=== PATIENT | male | born 1935 | race Caucasian/White ===

== ENCOUNTER 2016-10-07 09:03 | Day surgery (SDC) | payer MEDICARE ==
[2016-10-02 16:01] VITALS: BMI 27.6
[~2016-10-07 09:03] MED LIST: ALBUTEROL NEB (CONC) 2.5 MG/0.5 ML INHALATION ONE; LACTATED RINGERS 1,000 ML IV ONE; LACTATED RINGERS 1,000 ML IV SCH; LIDOCAINE 1% 20 ML VIAL (10MG/ML) FOR IV START INTRADERMA PRN; LIDOCAINE 2% (PF) 20 MG/ML 10ML INHALATION ONE; ONDANSETRON 4 MG/2 ML VIAL IVP ONE
[2016-10-07 10:43] LABS: Glucose,Whole Blood 119 mg/dL (75-99)
[2016-10-07] MEDS ORDERED: GLYCOPYRROLATE 0.2 MG/ML 2 ML VIAL ONE (11:04)
[2016-10-07] MEDS ORDERED: PROPOFOL 10 MG/ML 20 ML VIAL IV ONE (11:04)
[2016-10-07] MEDS ORDERED: KETAMINE 10 MG/ML 20 ML VIAL ONE (11:04)
[2016-10-07] MEDS ORDERED: MIDAZOLAM 2 MG/2 ML VIAL ONE (11:04)
--- NOTE | 2016-10-07 12:16 | P.PCN ---
Date of Procedure: 10/07/16 Preoperative Diagnosis: left lung mass Postoperative Diagnosis: 1. left vocal cord weakness/paralysis 2. 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 Endobronchial tumor completely effacing the secondary flip between the left upper and left lower lobe 4. Significant narrowing of the left upper lobe bronchus with airway diameter has been reduced by 90% 5. Near complete loss of the left lower lobe bronchus which is essentially infiltrated by tumor. Anesthesia: MAC Surgeon: Yehuda Whitehead Estimated Blood Loss (ml): 0 Pathology: other Condition: stable Disposition: same day Operative Findings: This procedure was done under conscious sedation with anesthetic agents being administered by anesthesia at the bedside. After achieving adequate sedation, a flexible bronchoscope was inserted through the right nostril was advanced to the upper airway. The upper airway structures were inspected. Posterior oropharynx larynx epiglottis and vocal cords were evaluated. Left vocal cord was less active compared to the right and I did suspect an underlying partial paralysis of the left vocal cord. A total of 2 mg of 1% lidocaine was applied to the vocal cords and following the bronchoscope was advanced into the upper trachea and examination of the tracheal bronchial tree with him. Trachea was patent within normal limits. Main flip was sharp and following that the bilateral mainstem bronchi were inspected. Examination of right mainstem bronchus was within normal limits. The left mainstem bronchus gradually tapered off and got narrowed as the airway was infiltrated by endobronchial tumor that was going circumferentially around the bronchus, somewhat spreading the posterior wall. As the bronchoscope was advanced further, there was further endobronchial tumor that was very irregular and vascular and friable occupying the distal left mainstem bronchus causing complete effacement of the secondary flip from the left upper lobe and the left lower lobe. The left upper lobe bronchus was narrowed significantly and the diameter of the airway was induced by 90%. I was unable to introduce the scope in the left upper lobe bronchus inspected various segments. There was also complete loss of the left lower lobe bronchus which was essentially infiltrated with tumor and this area was essentially heavily involved with endobronchial growth that was occupying the airway. At this point the bronchoscope was moved to the right and examination of the right lung included the right upper lobe bronchus right middle lobe bronchus and right lower lobe bronchus was done and these airways were essentially patent. Following that I remove the bronchoscope to the distal trachea and using an 18-gauge cytology to transbronchial needle aspirate of the left paratracheal lymph node was done. Adequacy of the sample was confirmed by pathology at the bedside. There was abnormal cells that needs to be further characterized. Following that, the bronchoscope was moved to the left mainstem bronchus and the bronchial biopsy of the endobronchial lesion was done under direct visualization. This was followed by endobronchial brushings at the end of the procedure I lavaged the secondary flip between the left upper and left lower lobe bronchi. Total of 80 MO's of fluid was infused and 25-30 MO's of aspirate was obtained. No active bleeding was identified although tumor surface was quite friable. The bronchoscope was then removed and on the way out therapeutic airway suctioning was done. The patient maintained a pulse ox above 90% throughout the procedure and he was transferred recovery in stable condition.
[2016-10-07 12:19] VITALS: TEMP 97.4
[2016-10-07 12:29] VITALS: RESP 16
--- NOTE | 2016-10-07 12:38 | XR ---
EXAMINATION TYPE: XR chest 1V portable DATE OF EXAM: 10/07/2016 12:31 PM COMPARISON: 09/28/2014 HISTORY: Postop left lung biopsy TECHNIQUE: Single frontal view of the chest is obtained. FINDINGS: There is near complete consolidation left lung with no sizable pneumothorax. Volume loss i s suspected. Right lung is clear. Heart size stable. IMPRESSION: 1. Aggressive consolidation and reduced aeration of the left lung. 2. No evidence of pneumothorax.
[2016-10-07 13:01] VITALS: PULSE 101
[2016-10-07 13:02] VITALS: BP 101/61
== END 2016-10-07 13:27 | disposition home or self-care (01) ==
LOC: ORWHC2ENDO 09:03
PROVIDERS: ATTEND Internal Medicine Critical Care Medicine
DX: C34.02 Malignant neoplasm of left main bronchus (principal); C77.1 Secondary and unspecified malignant neoplasm of intrathoracic lymph nodes; J38.01 Paralysis of vocal cords and larynx, unilateral; I25.10 Atherosclerotic heart disease of native coronary artery without angina pectoris; I10 Essential (primary) hypertension; E78.5 Hyperlipidemia, unspecified; E78.00 Pure hypercholesterolemia, unspecified; J44.9 Chronic obstructive pulmonary disease, unspecified; Z95.5 Presence of coronary angioplasty implant and graft; E11.9 Type 2 diabetes mellitus without complications; Z79.84 Long term (current) use of oral hypoglycemic drugs; Z79.02 Long term (current) use of antithrombotics/antiplatelets; Z79.82 Long term (current) use of aspirin; Z79.899 Other long term (current) drug therapy; Z87.891 Personal history of nicotine dependence
CPT/HCPCS: 94640; 88104; 88108; 88305; 88173; 88342; 88341; 71010; 31629; 31625; 31623; 31624; J2250; J2001; J2704

== ENCOUNTER 2016-10-20 20:04 | Inpatient (IN) | payer MEDICARE ==
--- NOTE | 2016-10-20 20:47 | ED ---
General Adult HPI - General Source: patient, RN notes reviewed Mode of arrival: wheelchair Limitations: no limitations <Benjie Zuniga - Last Filed: 10/20/16 20:58> <Benjie Milton - Last Filed: 10/20/16 22:44> - General Chief complaint: Shortness of Breath Stated complaint: difficulty breathing Time Seen by Provider: 10/20/16 20:25 - History of Present Illness Initial comments: This is an 81-year-old male who presents emergency department with past medical history significant for lung cancer he has not yet seen an oncologist. Patient comes in today because he has been coughing more and more lately and coughing up more more sputum. Patient states because of the persistent cough he's become much more short of breath. Patient denies any significant pain. Patient denies any abdominal pain. Patient denies any headache patient denies numbness weakness. Patient denies any fever or chills. Patient denies any recent injury or trauma. According to the son most of his left lung is blocked because of the tumor because it is very large and aggressive according to the physicians he has seen. Patient states the major reason that he came in today was because of the shortness of breath. (Benjie Zuniga) - Related Data Home Medications Medication Instructions Recorded Confirmed Aspirin 81 mg PO DAILY 02/20/15 10/20/16 Atorvastatin [Lipitor] 40 mg PO HS 02/20/15 10/20/16 Clopidogrel [Plavix] 75 mg PO DAILY 02/20/15 10/20/16 Lisinopril [Zestril] 10 mg PO BID 02/20/15 10/20/16 Metoprolol Tartrate 25 mg PO BID 02/20/15 10/20/16 Nitroglycerin Sl Tabs [Nitrostat] 0.4 mg SUBLINGUAL Q5M PRN 02/20/15 10/20/16 metFORMIN HCL [Glucophage] 500 mg PO DAILY 02/20/15 10/20/16 Omeprazole [PriLOSEC] 20 mg PO DAILY 10/20/16 10/20/16 Allergies Allergy/AdvReac Type Severity Reaction Status Date / Time No Known Allergies Allergy Verified 10/20/16 21:09 Review of Systems ROS Other: All systems not noted in ROS Statement are negative. <Benjie Zuniga - Last Filed: 10/20/16 20:58> ROS Other: All systems not noted in ROS Statement are negative. <Benjie Milton - Last Filed: 10/20/16 22:44> ROS Statement: Those systems with pertinent positive or pertinent negative responses have been documented in the HPI. Past Medical History Past Medical History: Coronary Artery Disease (CAD), Cancer, Chest Pain / Angina , Diabetes Mellitus, Hyperlipidemia, Myocardial Infarction ([place]), Pneumonia Additional Past Medical History / Comment(s): pt stated he had a heart attack years ago and doesn't know when. Hx. of multiple skin cancers. Was treated for pneumonia and was not getting better. lung cancer Last Myocardial Infarction Date:: unknown History of Any Multi-Drug Resistant Organisms: None Reported Past Surgical History: Appendectomy, Heart Catheterization With Stent, Tonsillectomy Additional Past Surgical History / Comment(s): removal of skin cancer from left arm, broken leg at age of 7. Skin cancer removed 3 weeks ago from scalp. Past Anesthesia/Blood Transfusion Reactions: No Reported Reaction Date of Last Stent Placement:: 2010 Past Psychological History: No Psychological Hx Reported Smoking Status: Former smoker Past Alcohol Use History: Rare Additional Past Alcohol Use History / Comment(s): Quit 6 years ago. Smoked approx. 1 PPD for a few years. Past Drug Use History: None Reported - Past Family History Brother(s) Additional Family Medical History / Comment(s): Enlarged heart. <Benjie Zuniga - Last Filed: 10/20/16 20:58> General Exam Limitations: no limitations <Benjie Zuniga - Last Filed: 10/20/16 20:58> General appearance: alert, in no apparent distress Head exam: Present: atraumatic, normocephalic, normal inspection Eye exam: Present: normal appearance, PERRL, EOMI. Absent: scleral icterus, conjunctival injection, periorbital swelling ENT exam: Present: normal exam, mucous membranes moist Neck exam: Present: normal inspection. Absent: tenderness, meningismus, lymphadenopathy Respiratory exam: Present: normal lung sounds bilaterally, other (Left lung diminished). Absent: respiratory distress, wheezes, rales, rhonchi, stridor Cardiovascular Exam: Present: normal rhythm, tachycardia, normal heart sounds. Absent: systolic murmur, diastolic murmur, rubs, gallop, clicks GI/Abdominal exam: Present: soft, normal bowel sounds. Absent: distended, tenderness, guarding, rebound, rigid Extremities exam: Present: normal inspection, full ROM, normal capillary refill. Absent: tenderness, pedal edema, joint swelling, calf tenderness Back exam: Present: normal inspection Neurological exam: Present: alert, oriented X3, CN II-XII intact Psychiatric exam: Present: normal affect, normal mood Skin exam: Present: warm, dry, intact, normal color. Absent: rash <Benjie Milton - Last Filed: 10/20/16 22:44> - General Exam Comments Initial Comments: GENERAL: Patient is well-developed and well-nourished. Patient is nontoxic and well- hydrated and is in mild distress. ENT: Neck is soft and supple. No significant lymphadenopathy is noted. Oropharynx is clear. Moist mucous membranes. Neck has full range of motion without eliciting any pain. EYES: The sclera were anicteric and conjunctiva were pink and moist. Extraocular movements were intact and pupils were equal round and reactive to light. Eyelids were unremarkable. PULMONARY: Unlabored respirations. Diminished breath sounds on the left. CARDIOVASCULAR: There is a regular rate and rhythm without any murmurs gallops or rubs. ABDOMEN: Soft and nontender with normal bowel sounds. No palpable organomegaly was noted. There is no palpable pulsatile mass. SKIN: Skin is clear with no lesions or rashes and otherwise unremarkable. NEUROLOGIC: Patient is alert and oriented x3. Cranial nerves II through XII are grossly intact. Motor and sensory are also intact. Normal speech, volume and content. Symmetrical smile. MUSCULOSKELETAL: Normal extremities with adequate strength and full range of motion. No lower extremity swelling or edema. No calf tenderness. LYMPHATICS: No significant lymphadenopathy is noted PSYCHIATRIC: Normal psychiatric evaluation. Normal interpersonal interactions appears functionally intact in deals appropriately with others. (Benjie Zuniga) Medical Decision Making - Lab Data Result diagrams: 10/20/16 20:33 <Benjie Zuniga - Last Filed: 10/20/16 20:58> - Lab Data Result diagrams: 10/20/16 20:33 10/20/16 20:33 - Radiology Data Radiology results: report reviewed (Chest x-ray two-view is positive for left lung atelectasis, compressive atelectasis likely secondary to tumor), image reviewed <Benjie Milton - Last Filed: 10/20/16 22:44> - Medical Decision Making EKG shows normal sinus rhythm at 90 bpm SD interval is 136 dresses 120 QT interval 360 QTC is 459 patient's EKG shows no ST segment elevation or depression however there is Q waves in leads V1 through V3 Dr. Milton will be taking over the care of this patient at 9 PM (Benjie Zuniga) 81 male ER for evaluation of severe shortness of breath, recent diagnosis of lung CA, patient has worsening compressive atelectasis of left lung, as well as 100% atelectasis of left lung. Patient is moderately hypoxic, patient will be admitted for both oncologic and pulmonary evaluation (Benjie Milton) - Lab Data Lab Results 10/20/16 10/20/16 10/20/16 Range/Units 20:33 20:33 20:33 WBC 9.0 (3.8-10.6) k/uL RBC 4.85 (4.30-5.90) m/uL Hgb 15.2 (13.0-17.5) gm/dL Hct 47.5 (39.0-53.0) % MCV 97.9 (80.0-100.0) fL MCH 31.3 (25.0-35.0) pg MCHC 32.0 (31.0-37.0) g/dL RDW 13.8 (11.5-15.5) % Plt Count 324 (150-450) k/uL Neutrophils % 83 % Lymphocytes % 9 % Monocytes % 6 % Eosinophils % 0 % Basophils % 1 % Neutrophils # 7.4 (1.3-7.7) k/uL Lymphocytes # 0.9 L (1.0-4.8) k/uL Monocytes # 0.5 (0-1.0) k/uL Eosinophils # 0.0 (0-0.7) k/uL Basophils # 0.1 (0-0.2) k/uL PT (9.0-12.0) sec INR (<1.1) APTT (22.0-30.0) sec Sodium 138 (137-145) mmol/L Potassium 4.8 (3.5-5.1) mmol/L Chloride 102 (98-107) mmol/L Carbon Dioxide 27 (22-30) mmol/L Anion Gap 9 mmol/L BUN 17 (9-20) mg/dL Creatinine 0.98 (0.66-1.25) mg/dL Est GFR (MDRD) Af Amer >60 (>60 ml/min/1.73 sqM) Est GFR (MDRD) Non-Af >60 (>60 ml/min/1.73 sqM) Glucose 132 H (74-99) mg/dL Calcium 9.8 (8.4-10.2) mg/dL Total Bilirubin 1.1 (0.2-1.3) mg/dL AST 177 H (17-59) U/L ALT 150 H (21-72) U/L Alkaline Phosphatase 269 H (38-126) U/L Total Creatine Kinase 113 (55-170) U/L CK-MB (CK-2) 3.6 H* (0.0-2.4) ng/mL CK-MB (CK-2) Rel Index 3.2 Troponin I <0.012 (0.000-0.034) ng/mL NT-Pro-B Natriuret Pep pg/mL Total Protein 6.3 (6.3-8.2) g/dL Albumin 3.2 L (3.5-5.0) g/dL 10/20/16 10/20/16 Range/Units 20:33 20:33 WBC (3.8-10.6) k/uL RBC (4.30-5.90) m/uL Hgb (13.0-17.5) gm/dL Hct (39.0-53.0) % MCV (80.0-100.0) fL MCH (25.0-35.0) pg MCHC (31.0-37.0) g/dL RDW (11.5-15.5) % Plt Count (150-450) k/uL Neutrophils % % Lymphocytes % % Monocytes % % Eosinophils % % Basophils % % Neutrophils # (1.3-7.7) k/uL Lymphocytes # (1.0-4.8) k/uL Monocytes # (0-1.0) k/uL Eosinophils # (0-0.7) k/uL Basophils # (0-0.2) k/uL PT 12.3 H (9.0-12.0) sec INR 1.2 (<1.1) APTT 21.0 L (22.0-30.0) sec Sodium (137-145) mmol/L Potassium (3.5-5.1) mmol/L Chloride (98-107) mmol/L Carbon Dioxide (22-30) mmol/L Anion Gap mmol/L BUN (9-20) mg/dL Creatinine (0.66-1.25) mg/dL Est GFR (MDRD) Af Amer (>60 ml/min/1.73 sqM) Est GFR (MDRD) Non-Af (>60 ml/min/1.73 sqM) Glucose (74-99) mg/dL Calcium (8.4-10.2) mg/dL Total Bilirubin (0.2-1.3) mg/dL AST (17-59) U/L ALT (21-72) U/L Alkaline Phosphatase (38-126) U/L Total Creatine Kinase (55-170) U/L CK-MB (CK-2) (0.0-2.4) ng/mL CK-MB (CK-2) Rel Index Troponin I (0.000-0.034) ng/mL NT-Pro-B Natriuret Pep 223 pg/mL Total Protein (6.3-8.2) g/dL Albumin (3.5-5.0) g/dL Disposition <Benjie Zuniga - Last Filed: 10/20/16 20:58> <Benjie Milton - Last Filed: 10/20/16 22:44> Clinical Impression: Chest pain, Mass of lower lobe of left lung, Mass of left lung, Atelectasis of left lung Disposition: ADMITTED IP TO THIS HOSP Condition: Serious
[2016-10-20 20:55] LABS: Basophils # (A) 0.1 k/uL (0-0.2); Basophils % (A) 1 %; CH 31.5; CHCM 32.4; Eosinophils % (A) 0 %; HCT 47.5 % (39.0-53.0); HDW 2.52; HGB 15.2 gm/dL (13.0-17.5); Luc # (Auto) 0.14; Luc % (Auto) 2; Lymphocytes # (A) 0.9 k/uL (1.0-4.8); Lymphocytes % (A) 9 %; MCH 31.3 pg (25.0-35.0); MCV 97.9 fL (80.0-100.0); Mean Platelet Volume 8.1; Monocytes # (A) 0.5 k/uL (0-1.0); Monocytes % (A) 6 %; Neutrophils # (A) 7.4 k/uL (1.3-7.7); Neutrophils % (A) 83 %; RBC 4.85 m/uL (4.30-5.90); RDW 13.8 % (11.5-15.5); WBC (Perox) 8.85
[2016-10-20 21:03] LABS: INR 1.2 (<1.1); Prothrombin Time 12.3 sec (9.0-12.0)
[2016-10-20 21:07] LABS: ALT 150 U/L (21-72); AST 177 U/L (17-59); Alkaline Phosphatase 269 U/L (38-126); Anion Gap 9 mmol/L; Blood Urea Nitrogen 17 mg/dL (9-20); Calcium 9.8 mg/dL (8.4-10.2); Carbon Dioxide 27 mmol/L (22-30); Chloride 102 mmol/L (98-107); Glucose 132 mg/dL (74-99); Non-African American GFR(MDRD) >60 (>60 ml/min/1.73 sqM); Potassium 4.8 mmol/L (3.5-5.1); Sodium 138 mmol/L (137-145); Total Bilirubin 1.1 mg/dL (0.2-1.3); Total Protein 6.3 g/dL (6.3-8.2)
--- NOTE | 2016-10-20 21:07 | XR ---
EXAMINATION TYPE: XR chest 2V DATE OF EXAM: 10/20/2016 8:56 PM COMPARISON: October 07, 2016 HISTORY: Dyspnea TECHNIQUE: Frontal and lateral views of the chest are obtained. FINDINGS: There is now a complete whiteout of the left hemithorax consistent with left lung airlessness. There are no abnormal gas collections. No midline shift of structures. On the right, the lung is clear and well-expanded in the right pleural spaces negative. IMPRESSION: MILD-MODERATE INTERVAL WORSENING, WITH INCREASED LEFT SIDED AIRLESSNESS SINCE THE PRIOR STUDY SUCH TH AT NOW THERE IS A COMPLETE WHITEOUT OF THE LEFT HEMITHORAX.
[2016-10-20 21:10] LABS: Creatine Kinase 113 U/L (55-170)
[2016-10-20 21:24] LABS: Troponin I <0.012 ng/mL (0.000-0.034)
[2016-10-20 21:28] LABS: Creatine Kinase MB 3.6 ng/mL (0.0-2.4)
[2016-10-20] MEDS: SODIUM CHLORIDE 0.9% 1,000 ML IV SCH (23:25)
[2016-10-21] MEDS ORDERED: AZITHROMYCIN 500 MG in SODIUM CHLORIDE 0.9% 250 ML IVPB SCH (01:00)
[2016-10-21 01:04] VITALS: BMI 27.8
[2016-10-21] MEDS ORDERED: guaiFENesin-Coden 100-10MG/5ML 10 ML CUP PO PRN (01:11)
[2016-10-21] MEDS: LISINOPRIL 10 MG TAB PO SCH ×2 (01:42→08:48)
[2016-10-21] MEDS: ZOLPIDEM 5 MG TAB PO PRN (01:45)
[2016-10-21 07:38] LABS: Glucose,Whole Blood 109 mg/dL (75-99)
[2016-10-21] MEDS: METOPROLOL TARTRATE 25 MG TAB PO SCH ×2 (08:48→20:51)
[2016-10-21] MEDS: CLOPIDOGREL 75 MG TAB PO SCH (08:48)
[2016-10-21] MEDS ORDERED: ASPIRIN 325 MG TAB PO SCH (09:00)
[2016-10-21] MEDS: ENOXAPARIN 40 MG/0.4 ML SYRINGE SQ SCH ×2 (09:34→09:36)
[2016-10-21] MEDS: ASPIRIN 81 MG CHEW PO SCH (09:34)
[2016-10-21] MEDS ORDERED: NITROGLYCERIN SL TABS 0.4 MG TAB SUBLINGUAL PRN (10:29)
--- NOTE | 2016-10-21 10:59 | P.CNPUL ---
History of Present Illness Consult date: 10/21/16 Reason for consult: dyspnea, cough, hypoxemia, pleural effusion, abnormal CXR/CT Chief complaint: shortness of breath, difficulty breathing History of present illness: This is an 81-year-old male who presented to the emergency department with complaints of increasing and progressive shortness of breath. The patient was recently seen by Dr. Yaw Keenan in the office and also with by Dr. Whitehead and Dr. 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 Has not seen either radiation or medical oncology as yet. He was apparently scheduled to see one of the medical oncologist today at 3 PM. He was admitted yesterday through the emergency room. I just recently saw him in his room. He short of breath. He is wearing nasal O2. Chest x-ray reveals complete white out of the left lung with significant cut off sign. This could be related to the pre-and/or tumor causing obstruction. In addition he appears that he probably has a significant left-sided pleural effusion. Ultrasound has been ordered. I did [facility] to see the patient as well as medical oncology while here in the hospital. Likely he will need thoracic surgery to have a Pleurx catheter placed for malignant left- sided pleural effusion. Anyway the patient's major issue shortness of breath as I mention. Seems a bit more comfortable today than he was in the emergency room. I did meet his at the bedside. She realizes that his overall prognosis is poor. I'm not sure what has been done in terms of the workup as yet. Review of Systems A 12 point review of system is primarily positive for shortness of breath. Bit of a cough. Not producing much phlegm. No fever no chills. No chest pain. Past Medical History Past Medical History: Coronary Artery Disease (CAD), Cancer, Chest Pain / Angina , Diabetes Mellitus, Hyperlipidemia, Myocardial Infarction ([place]), Pneumonia Additional Past Medical History / Comment(s): new diagnosis of lung ca in July 2016. Last Myocardial Infarction Date:: unknown History of Any Multi-Drug Resistant Organisms: None Reported Past Surgical History: Appendectomy, Heart Catheterization With Stent, Tonsillectomy Additional Past Surgical History / Comment(s): removal of skin cancer from left arm, broken leg at age of 7. Skin cancer removed 3 weeks ago from scalp. Past Anesthesia/Blood Transfusion Reactions: No Reported Reaction Date of Last Stent Placement:: 2010 Past Psychological History: No Psychological Hx Reported Smoking Status: Former smoker Past Alcohol Use History: Rare Additional Past Alcohol Use History / Comment(s): Quit 6 years ago. Smoked approx 3 packs per day before cardiac stents placed. Past Drug Use History: None Reported - Past Family History Brother(s) Family Medical History: Cancer Additional Family Medical History / Comment(s): Enlarged heart. pancreatic cancer. Medications and Allergies Home Medications Medication Instructions Recorded Confirmed Type Aspirin 81 mg PO DAILY 02/20/15 10/20/16 History Atorvastatin [Lipitor] 40 mg PO HS 02/20/15 10/20/16 History Clopidogrel [Plavix] 75 mg PO DAILY 02/20/15 10/20/16 History Lisinopril [Zestril] 10 mg PO BID 02/20/15 10/20/16 History Metoprolol Tartrate 25 mg PO BID 02/20/15 10/20/16 History Nitroglycerin Sl Tabs [Nitrostat] 0.4 mg SUBLINGUAL Q5M PRN 02/20/15 10/20/16 History metFORMIN HCL [Glucophage] 500 mg PO DAILY 02/20/15 10/20/16 History Omeprazole [PriLOSEC] 20 mg PO DAILY 10/20/16 10/20/16 History Allergies Allergy/AdvReac Type Severity Reaction Status Date / Time No Known Allergies Allergy Verified 10/20/16 21:09 Physical Exam Osteopathic Statement: *. No significant issues noted on an osteopathic structural exam other than those noted in the History and Physical/Consult. Vitals: Vital Signs Temp Pulse Pulse Resp BP BP Pulse Ox 10/21/16 08:00 18 10/21/16 07:00 98.0 F 94 18 135/73 95 10/21/16 00:07 97.6 F 102 H 17 149/67 93 L 10/20/16 23:28 101 H 16 151/77 93 L Intake and Output 10/20/16 10/21/16 10/21/16 22:59 06:59 14:59 Intake Total 950 Balance 950 Intake: IV 600 Sodium Chloride 0.9% 1, 600 000 ml @ 100 mls/hr IV . Q10H [facility] Rx#:[id number] Intake, IV Titration 300 Amount Azithromycin 500 mg In 250 Sodium Chloride 0.9% 250 ml @ 125 mls/hr IVPB Q24H [facility] Rx#:[id number] cefTRIAXone 1,000 mg In 50 Sodium Chloride 0.9% 50 ml @ 100 mls/hr IVPB Q24H [facility] Rx#:[id number] Oral 50 Other: Voiding Method Urinal Urinal # Voids 1 # Bowel Movements 1 Weight 92.986 kg No acute distress, oriented 3. No actual respiratory distress. He is wearing nasal O2. HEENT exam examination is grossly unremarkable. Mucous membranes are moist. No oral lesions. Neck supple. Full range of motion. No adenopathy. No neck vein distention. Cardiovascular examination reveals regular rhythm rate. Heart rate in the mid 80s. Is regular. S1 and S2 normal. No distinct murmurs noted. Lungs reveal almost absent left breath sounds. A few scattered rhonchi on the right side. No wheezes or crackles. There is dullness on percussion to the left posterior chest. Suggest fluid. Abdomen soft bowel sounds are heard. Extremities are intact. His no edema. Results - Laboratory Findings CBC and BMP: 10/20/16 20:33 10/20/16 20:33 PT/INR, D-dimer PT 12.3 sec (9.0-12.0) H 10/20/16 20:33 INR 1.2 (<1.1) 10/20/16 20:33 Abnormal lab findings: Abnormal Labs 10/21/16 07:25 POC Glucose (mg/dL) 109 H Assessment and Plan (1) Small cell lung cancer Status: Acute (2) Malignant pleural effusion Status: Acute (3) Collapse of left lung Status: Acute (4) Atelectasis of left lung Status: Acute (5) Mass of left lung Status: Acute (6) Mass of left lung Status: Acute Plan: plan dated 10/21/2016 The patient recently had a diagnosis but no additional staging and/or evaluation by medical and/or radiation oncologist as yet been done. Will have both medical medical and radiation oncologist see the patient today. The patient will also have an ultrasound left chest. Will likely need a Pleurx catheter in left pleural space malignant pleural effusion. His seems be realistic and that she realizes is a bad cancer without cure. The patient should be started on treatment a right away anyway. He seems to be agreeable to that. Does not appear to be any significant distress at this point. Is wearing nasal O2. Feels better today than he did yesterday when he came in. Again we will have thoracic surgery medical oncology and radiation oncology see the patient. I did look at his x-ray looked up his path report that was recently posted. Additional recommendations suggestions are forthcoming. Time with Patient: Greater than 30
[2016-10-21 11:01] LABS: Hepatitis B Surface Ag Index 0.07
[2016-10-21 11:07] LABS: Hepatitis B Core IgM Index 0.03
[2016-10-21 11:18] LABS: Hepatitis C Virus IgG Index 0.01
--- NOTE | 2016-10-21 11:21 | HP ---
DATE OF ADMISSION: Patient is an 81-year-old, came in with a known history of lung cancer, suppose to see Dr. Festus Dia as an outpatient. Came in with increasing shortness of breath. Patient is having a cough with whitish sputum production. Patient had a fall 2 to 3 days ago and patient is found to have complete whiteout of the left lung which is significant for pleural effusion. On clinical exam, patient has significant dullness posteriorly. There is no tracheal deviation. Patient does not have any leukocytosis or fever. Patient denied any fever at home either. Patient denied any nausea, vomiting, abdominal pain. 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 Canales. ROS: All other systems were reviewed and were negative. Home medications include: 1. Aspirin. 2. Atorvastatin. 3. Plavix. 4. Lisinopril. 5. Metoprolol. 6. Nitroglycerin. 7. Metformin. 8. Omeprazole. Patient has coronary artery disease with stent placement 8 years ago, small cell lung cancer, diabetes mellitus type 2, hyperlipidemia, myocardial infarction and appendectomy, cardiac consideration with stent placement, tonsillectomy, bronchoscopy recently. SOCIAL HISTORY: Former smoker. Quit smoking since stent about 8 years ago. Denied any alcohol abuse or any drug abuse. FAMILY HISTORY: Brother had enlarged heart. PHYSICAL EXAMINATION: Temperature 98.0, pulse of 94, respiratory rate of 18, blood pressure is 135/73, saturating at 93% on 3 L of O2 by nasal cannula. LUNG EXAMINATION: Patient has dullness in the posterior lung field on the left side, no bronchophony or egophony. No wheezing was present. GENERAL: The patient is alert and oriented x3, not in any acute distress. Well developed, well nourished. HEENT: Pupils are round and equally reacting to light. EOMI. No scleral icterus. No conjunctival pallor. Normocephalic, atraumatic. No pharyngeal erythema. No thyromegaly. CARDIOVASCULAR: S1 and S2 present. No murmurs, rubs, or gallops. ABDOMEN: Soft, nontender, nondistended, normoactive bowel sounds. No palpable organomegaly. MUSCULOSKELETAL: No joint swelling or deformity. EXTREMITIES: No cyanosis, clubbing, or pedal edema. NEUROLOGICAL: Gross neurological examination did not reveal any focal deficits. SKIN: No rashes. LABORATORY DATA: CBC, CMP are abnormal for elevated AST of 177 and ALT of 150. ASSESSMENT AND PLAN: 1. Acute hypoxic respiratory failure, probably related to pleural effusion. My suspicion is extremely low for pneumonia and patient probably has pleural effusion. Will obtain an ultrasound and consulted Pulmonology and Pulmonology is requesting Cardiothoracic Surgery to place Pleurx catheter. Will obtain an ultrasound of the chest as well as ultrasound of the gallbladder. 2. Elevated liver enzymes; unsure of the exact etiology. Will obtain ultrasound of the liver and gallbladder, probably due to metastatic disease and also will obtain a hepatitis panel on him. 3. Recently diagnosed small cell lung cancer for which patient is supposed to be initiated on chemotherapy today. Will consult Oncology for that. 4. Hypertension. 5. Hyperlipidemia. 6. Coronary artery disease. 7. Diabetes mellitus. For above mentioned current chronic medical problems, I will go ahead and continue his home medications except for metformin, instead will use sliding scale insulin. Patient's primary care physician is Dr. Jose Alberto Zamora. JOSÉ LUIS
[2016-10-21 11:41] LABS: Hepatitis C Virus IgG Ab Negative (Negative)
[2016-10-21] MEDS: SODIUM CHLORIDE 0.9% 1,000 ML IV SCH ×2 (11:52→20:56)
[2016-10-21 12:05] LABS: Glucose,Whole Blood 109 mg/dL (75-99)
[2016-10-21] MEDS: INSULIN LISPRO (humaLOG) 300 UNIT/3 ML VIAL SQ SCH ×3 (12:07→20:47)
--- NOTE | 2016-10-21 12:34 | P.GSCN ---
<Criselda Saldaña - Last Filed: 10/21/16 12:18> History of Present Illness Consult date: 10/21/16 Reason for Consult: Malignant left pleural effusion with possible need for Pleurx cath placement Requesting physician: Jose Alberto Lin History of present illness: This 81-year-old male came into the emergency room with significant shortness of breath. Apparently he was recently being treated for what was thought to be pneumonia, however, the patient did not get better and was sent to pulmonology per his primary care physician. Based on chest x-rays and CAT scans done at [facility], Dr. Whitehead performed a bronchoscopy with fine needle aspiration on 10/07/2016. The results of this biopsy demonstrated small cell lung cancer. Patient was to follow up with oncology today, however was admitted last night to the ER with a significant increase in shortness of breath. X-ray done in the emergency room demonstrated complete white-out of his left lung. Dr. Lin requested consult from Dr. Chase from thoracic surgery for the possibility of Pleurx catheter placement Review of Systems 14 point review systems was completed and negative except as noted. - Constitutional Constitutional Comment(s): Difficulty sleeping at night secondary to coughing. - EENT Ears, nose, mouth and throat: Reports hoarseness - Cardiovascular Reports shortness of breath - Respiratory Reports cough with sputum, Reports dyspnea, Reports home oxygen - Genitourinary Reports dysuria Past Medical History Past Medical History: Coronary Artery Disease (CAD), Cancer, Chest Pain / Angina , Diabetes Mellitus, Hyperlipidemia, Myocardial Infarction ([place]), Pneumonia Additional Past Medical History / Comment(s): new diagnosis of lung ca in September 2016. Last Myocardial Infarction Date:: unknown History of Any Multi-Drug Resistant Organisms: None Reported Past Surgical History: Appendectomy, Heart Catheterization With Stent, Tonsillectomy Additional Past Surgical History / Comment(s): removal of skin cancer from left arm, broken leg at age of 7. Skin cancer removed 3 weeks ago from scalp. Past Anesthesia/Blood Transfusion Reactions: No Reported Reaction Date of Last Stent Placement:: 2010 Past Psychological History: No Psychological Hx Reported Smoking Status: Former smoker Past Alcohol Use History: Rare Additional Past Alcohol Use History / Comment(s): Quit 6 years ago. Smoked approx 3 packs per day before cardiac stents placed. Past Drug Use History: None Reported - Past Family History Brother(s) Family Medical History: Cancer Additional Family Medical History / Comment(s): Enlarged heart. pancreatic cancer. Medications and Allergies Home Medications Medication Instructions Recorded Confirmed Type Aspirin 81 mg PO DAILY 02/20/15 10/20/16 History Atorvastatin [Lipitor] 40 mg PO HS 02/20/15 10/20/16 History Clopidogrel [Plavix] 75 mg PO DAILY 02/20/15 10/20/16 History Lisinopril [Zestril] 10 mg PO BID 02/20/15 10/20/16 History Metoprolol Tartrate 25 mg PO BID 02/20/15 10/20/16 History Nitroglycerin Sl Tabs [Nitrostat] 0.4 mg SUBLINGUAL Q5M PRN 02/20/15 10/20/16 History metFORMIN HCL [Glucophage] 500 mg PO DAILY 02/20/15 10/20/16 History Omeprazole [PriLOSEC] 20 mg PO DAILY 10/20/16 10/20/16 History Allergies Allergy/AdvReac Type Severity Reaction Status Date / Time No Known Allergies Allergy Verified 10/20/16 21:09 Surgical - Exam Vital Signs Temp Pulse Resp BP Pulse Ox 98.1 F 106 H 18 136/67 92 L 10/20/16 20:08 10/20/16 20:08 10/20/16 20:08 10/20/16 20:08 10/20/16 20:08 - General well developed, well nourished, no distress - Eyes PERRL, normal ocular movement - ENT no hearing loss - Neck no masses, no bruits, trachea midline carotid bruit: absent - Respiratory Lungs sounds very diminished bilaterally. Respirations even, nonlabored except after coughing.currently on 2 L nasal cannula. Patient coughing up clear to white sputum. - Cardiovascular Rhythm: regular Heart Sounds: normal: S1, S2 - Abdomen Abdomen: soft, non tender, bowel sounds - Genitourinary deferred - Rectum deferred - Integumentary no rash - Neurologic normal coordination, normal sensation - Musculoskeletal normal gait - Psychiatric oriented to time, oriented to person, oriented to place, speech is normal, memory intact Results - Labs 10/20/16 20:33 10/20/16 20:33 Abnormal Lab Results - Last 24 Hours (Table) 10/21/16 Range/Units 07:25 POC Glucose (mg/dL) 109 H (75-99) mg/dL - Imaging Chest x-ray: report reviewed, image reviewed Assessment and Plan (1) Malignant pleural effusion Status: Acute (2) Small cell lung cancer Status: Acute Plan: 1. Will obtain chest CT without contrast to evaluate pleural effusion. 2. Supportive care, appreciate oncology/radiation oncology recommendations. 3. Will consider Pleurx catheter placement dependent on results of chest CT. 4. More recommendations as patient progresses. Thank you Dr. Lin for this consult. We look forward to working with you in the care of your patient. Time with Patient: Greater than 30 <Jason Chase - Last Filed: 10/22/16 17:38> Surgical - Exam Vital Signs Temp Pulse Resp BP Pulse Ox 98.1 F 106 H 18 136/67 92 L 10/20/16 20:08 10/20/16 20:08 10/20/16 20:08 10/20/16 20:08 10/20/16 20:08 Results - Labs 10/20/16 20:33 10/22/16 11:13 Abnormal Lab Results - Last 24 Hours (Table) 10/21/16 10/21/16 10/22/16 Range/Units 16:50 20:05 07:19 Glucose (74-99) mg/dL POC Glucose (mg/dL) 122 H 105 H 108 H (75-99) mg/dL AST (17-59) U/L ALT (21-72) U/L Alkaline Phosphatase (38-126) U/L Total Protein (6.3-8.2) g/dL Albumin (3.5-5.0) g/dL 10/22/16 10/22/16 Range/Units 11:13 12:14 Glucose 116 H (74-99) mg/dL POC Glucose (mg/dL) 113 H (75-99) mg/dL AST 225 H (17-59) U/L ALT 207 H (21-72) U/L Alkaline Phosphatase 284 H (38-126) U/L Total Protein 5.7 L (6.3-8.2) g/dL Albumin 2.8 L (3.5-5.0) g/dL Diabetes panel 10/22/16 Range/Units 11:13 Sodium 138 (137-145) mmol/L Potassium 4.7 (3.5-5.1) mmol/L Chloride 102 (98-107) mmol/L Carbon Dioxide 26 (22-30) mmol/L BUN 15 (9-20) mg/dL Creatinine 0.89 (0.66-1.25) mg/dL Glucose 116 H (74-99) mg/dL Calcium 9.3 (8.4-10.2) mg/dL AST 225 H (17-59) U/L ALT 207 H (21-72) U/L Alkaline Phosphatase 284 H (38-126) U/L Total Protein 5.7 L (6.3-8.2) g/dL Albumin 2.8 L (3.5-5.0) g/dL Calcium panel 10/22/16 Range/Units 11:13 Calcium 9.3 (8.4-10.2) mg/dL Albumin 2.8 L (3.5-5.0) g/dL Pituitary panel 10/22/16 Range/Units 11:13 Sodium 138 (137-145) mmol/L Potassium 4.7 (3.5-5.1) mmol/L Chloride 102 (98-107) mmol/L Carbon Dioxide 26 (22-30) mmol/L BUN 15 (9-20) mg/dL Creatinine 0.89 (0.66-1.25) mg/dL Glucose 116 H (74-99) mg/dL Calcium 9.3 (8.4-10.2) mg/dL Adrenal panel 10/22/16 Range/Units 11:13 Sodium 138 (137-145) mmol/L Potassium 4.7 (3.5-5.1) mmol/L Chloride 102 (98-107) mmol/L Carbon Dioxide 26 (22-30) mmol/L BUN 15 (9-20) mg/dL Creatinine 0.89 (0.66-1.25) mg/dL Glucose 116 H (74-99) mg/dL Calcium 9.3 (8.4-10.2) mg/dL Total Bilirubin 1.0 (0.2-1.3) mg/dL AST 225 H (17-59) U/L ALT 207 H (21-72) U/L Alkaline Phosphatase 284 H (38-126) U/L Total Protein 5.7 L (6.3-8.2) g/dL Albumin 2.8 L (3.5-5.0) g/dL Assessment and Plan Plan: The patient was examined chart was reviewed and the computed tomography scan was reviewed. I also reviewed the computed tomography scan and PET scan performed at [facility] earlier this month. My impression on the current studies is that there is complete obstruction of the left mainstem bronchus with resultant complete atelectasis of the left lung. There is volume loss on the left side with mediastinal shift from right to left. There is some pleural effusion on the left side but this is not compressive. Given the above findings, I recommend radiation therapy treatment for the bronchial obstruction at this time. I do not recommend any drainage procedures for the left pleural effusion at this time. This was discussed with the family and they were in agreement the plan as outlined above. We do not plan any surgical intervention at this time. We are happy to become involved if the clinical situation changes. Wish to thank you for the opportunity of being involved in the care of this patient.
--- NOTE | 2016-10-21 15:17 | CT ---
EXAMINATION TYPE: CT chest wo con DATE OF EXAM: 10/21/2016 3:06 PM COMPARISON: Chest x-ray 20 October 2016 HISTORY: Evaluate left pleural effusion CT DLP: 703 mGycm Automated exposure control for dose reduction was used. FINDINGS: There is opacification of the left hemithorax, pleural effusion is associated with atelectatic lung, lung shows abnormal attenuation, there is abnormal subcarinal, left hilar, mediastinal adenopathy whi ch is extensive. Volume loss present in the left hemithorax. Right lung is clear. Left mainstem bronc hus is occluded proximally. There are coronary artery calcifications. The liver shows multiple varying sized low attenuation lesions suggestive of metastatic disease. Ther e is likely portal adenopathy. There is a small pericardial effusion. IMPRESSION: METASTATIC DISEASE. ADDITIONAL FINDINGS ABOVE.
--- NOTE | 2016-10-21 15:23 | US ---
EXAMINATION TYPE: US gallbladder DATE OF EXAM: 10/21/2016 2:34 PM COMPARISON: on PACS CLINICAL HISTORY: elevated liver enzymes. Lung Ca. Patient states having no pain. EXAM MEASUREMENTS: Liver Length: 20.4 cm Gallbladder Wall: 0.5 cm CBD: 0.2 cm Right Kidney: 11.5 x 5.2 x 4.9 cm Pancreas: echogenic. Possible lesion seen in pancreatic head vs other origin= 1.8 x 2.5 x 1.7 cm Liver: Enlarged. Multiple hypoechoic lesions seen throughout liver. Largest seen right lobe - 3.5 x 2.7 cm Gallbladder: Multiple echogenic foci seen with shadowing, mobile. Wall thickening. Evidence for sonographic Espino's sign: neg CBD: wnl Right Kidney: wnl IMPRESSION: 1. Findings compatible with metastatic disease to the liver. 2. Pancreatic mass versus adenopathy. 3. Cholelithiasis with gallbladder wall thickening.
--- NOTE | 2016-10-21 15:29 | US ---
EXAMINATION TYPE: US chest DATE OF EXAM: 10/21/2016 2:14 PM COMPARISON: on pacs CLINICAL HISTORY: fluid. Lung Ca EXAM MEASUREMENTS: Left Pleural Effusion fluid pocket: 4.4 cm Left skin to fluid thickness: 4.6 cm Pulmonologists are able to review the images in the patient?s EMR. Bilateral posterior chest scanned. Left effusion seen, not marked. No fluid seen in right chest. IMPRESSIONS: Left-sided pleural effusion.
[2016-10-21] MEDS ORDERED: RX INFO: IV CONTRAST WAS GIVEN 1 EACH MISC MISCELLANE PRN (16:13)
--- NOTE | 2016-10-21 16:14 | P.CONS ---
History of Present Illness - Reason for Consult Consult date: 10/21/16 metastatic small cell lung cancer Requesting physician: Benjie Milton - Chief Complaint SOB - History of Present Illness Patient is a very pleasant 81-year-old male who started doctoring in July for what was initially diagnosed as pneumonia. Patient's symptoms persisted and did not improve despite treatment. Patient states that on his return visits over the last 60 days or so to his doctor's office he noted progressive weight loss, he believes he is up to about 35 pound wt. loss in less then 90 days. Patient denied any fevers, night sweats, pain, difficulty in swallowing, nausea or vomiting, appetite is fair to poor, he has a persistent cough but denies any hemoptysis, no abdominal pain or cramping, no acute changes in bowel or bladder habits. Patient had bronchoscopy and biopsy with Dr. Whitehead on 10/07/2016 of left lung mass found on computed tomography scan. Pathology returned positive for small cell lung cancer. Patient was actually due to see Dr. Dia in the office today but unfortunately he ended up in the emergency room with progressive shortness of breath. Patient has since had ultrasound identifying approximately 4.4 centimeter pleural effusion on the left, patient has been seen by surgery for possible placement of a Pleurx drain. Patient has been seen by pulmonary. Patient has been seen by radiation oncology who has offered patient some palliative radiation to the left lung tumor to decrease malignant secretions. Review of Systems All systems: negative Constitutional: Reports as per HPI Past Medical History Past Medical History: Coronary Artery Disease (CAD), Cancer, Chest Pain / Angina , Diabetes Mellitus, Hyperlipidemia, Myocardial Infarction ([place]), Pneumonia Additional Past Medical History / Comment(s): new diagnosis of lung ca in September 2016. Last Myocardial Infarction Date:: unknown History of Any Multi-Drug Resistant Organisms: None Reported Past Surgical History: Appendectomy, Heart Catheterization With Stent, Tonsillectomy Additional Past Surgical History / Comment(s): removal of skin cancer from left arm, broken leg at age of 7. Skin cancer removed 3 weeks ago from scalp. Past Anesthesia/Blood Transfusion Reactions: No Reported Reaction Date of Last Stent Placement:: 2010 Past Psychological History: No Psychological Hx Reported Smoking Status: Former smoker Past Alcohol Use History: Rare Additional Past Alcohol Use History / Comment(s): Quit 6 years ago. Smoked approx 3 packs per day before cardiac stents placed. Past Drug Use History: None Reported - Past Family History Brother(s) Family Medical History: Cancer Additional Family Medical History / Comment(s): Enlarged heart. pancreatic cancer. Medications and Allergies Home Medications Medication Instructions Recorded Confirmed Type Aspirin 81 mg PO DAILY 02/20/15 10/20/16 History Atorvastatin [Lipitor] 40 mg PO HS 02/20/15 10/20/16 History Clopidogrel [Plavix] 75 mg PO DAILY 02/20/15 10/20/16 History Lisinopril [Zestril] 10 mg PO BID 02/20/15 10/20/16 History Metoprolol Tartrate 25 mg PO BID 02/20/15 10/20/16 History Nitroglycerin Sl Tabs [Nitrostat] 0.4 mg SUBLINGUAL Q5M PRN 02/20/15 10/20/16 History metFORMIN HCL [Glucophage] 500 mg PO DAILY 02/20/15 10/20/16 History Omeprazole [PriLOSEC] 20 mg PO DAILY 10/20/16 10/20/16 History Allergies Allergy/AdvReac Type Severity Reaction Status Date / Time No Known Allergies Allergy Verified 10/20/16 21:09 Physical Exam Vitals: Vital Signs Temp Pulse Pulse Resp BP BP Pulse Ox 10/21/16 15:43 18 10/21/16 08:00 18 10/21/16 07:00 98.0 F 94 18 135/73 95 10/21/16 00:07 97.6 F 102 H 17 149/67 93 L 10/20/16 23:28 101 H 16 151/77 93 L Intake and Output 10/21/16 10/21/16 10/21/16 06:59 14:59 22:59 Intake Total 950 700 Balance 950 700 Intake: IV 600 700 Sodium Chloride 0.9% 1, 600 700 000 ml @ 100 mls/hr IV . Q10H KYLE Rx#:[id number] Intake, IV Titration 300 Amount Azithromycin 500 mg In 250 Sodium Chloride 0.9% 250 ml @ 125 mls/hr IVPB Q24H KYLE Rx#:[id number] cefTRIAXone 1,000 mg In 50 Sodium Chloride 0.9% 50 ml @ 100 mls/hr IVPB Q24H KYLE Rx#:[id number] Oral 50 Other: Voiding Method Urinal Urinal Urinal # Voids 1 # Bowel Movements 1 Weight 92.986 kg 92.986 kg Patient Weight 10/22/16 06:59 Weight 92.986 kg - Constitutional General appearance: average body habitus, cooperative, no acute distress - EENT Eyes: anicteric sclerae, normal appearance ENT: normal oropharynx - Respiratory Respiratory: bilateral: diminished - Cardiovascular Heart sounds: normal: S1, S2 Abnormal Heart Sounds: systolic murmur leg Peripheral Edema: bilateral: None - Gastrointestinal General gastrointestinal: normal bowel sounds, soft - Neurologic Neurologic: CNII-XII intact - Musculoskeletal Musculoskeletal: strength equal bilaterally - Psychiatric Psychiatric: A&O x's 3, appropriate affect, intact judgment & insight Results CBC & Chem 7: 10/20/16 20:33 10/20/16 20:33 Labs: Abnormal Lab Results - Last 24 Hours (Table) 10/21/16 10/21/16 Range/Units 07:25 12:01 POC Glucose (mg/dL) 109 H 109 H (75-99) mg/dL Comments: PET report reviewed with Dr. Dodge Pathology and procedure reports reviewed CT scan - chest: report reviewed Assessment and Plan (1) Small cell lung cancer Narrative/Plan: New diagnosis of small cell lung cancer. Family did have a copy of the recent PET scan showing increased uptake in the liver as well as the bone and mediastinum. Patient therefore would be staged with extensive disease. CT of the brain has been ordered to complete staging workup. Goal at this time is to improve patient's respiratory status. Patient is being evaluated currently for Pleurx drain or possibly thoracentesis. Radiation oncology has spoken with patient and is offering some palliative radiation, typically somewhere around 10 treatments. Plan of care will be discussed with Dr. Dia. Typically small cell patient's have an excellent initial response to chemotherapy treatment. Patient is actually in very good physical shape other than his respiratory status. Appropriate timing of chemotherapy his very important to tolerance. Multiple family members were present, all of their questions were answered to the best of my ability. We will follow up with patient in the a.m. Status: Acute
[2016-10-21 16:55] LABS: Glucose,Whole Blood 122 mg/dL (75-99)
[2016-10-21] MEDS: IOHEXOL 350 MG/ML 25 ML BOTTLE (ORAL USE) PO PRN ×2 (17:05→17:59)
--- NOTE | 2016-10-21 19:17 | CT ---
EXAMINATION TYPE: CT brain w con DATE OF EXAM: 10/21/2016 7:08 PM COMPARISON: NONE HISTORY: No complaints. Recent diagnosis of lung cancer, initial staging study. CT DLP: 2422 mGycm Automated Exposure Control for Dose Reduction was Utilized. TECHNIQUE: CT scan of the head is performed with IV contrast.,CT scan of the head is performed withou t and with with IV Contrast, patient injected with 100 mL of Omnipaque 300. CLINICAL HISTORY: COMPARISON: None. FINDINGS: Noncontrast images show no acute intracranial hemorrhage or midline shift. The ventricles and sulci are within normal limits in size. Some low-attenuation in periventricular white matter is present. Postcontrast images show no suspicious enhancing intraparenchymal mass. The globes are intac t and the visualized sinuses are clear. IMPRESSION: No worrisome enhancing intraparenchymal mass is seen to suggest metastatic malignancy. Mi ld chronic small vessel ischemic change is noted.
[2016-10-21 20:07] LABS: Glucose,Whole Blood 105 mg/dL (75-99)
[2016-10-21] MEDS: ATORVASTATIN 40 MG TAB PO SCH (20:56)
--- NOTE | 2016-10-21 22:28 | CONS ---
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 HISTORY OF PRESENT ILLNESS: This is an 81-year-old male patient who underwent further evaluation for chest discomfort and increased shortness of breath. On imaging, the patient was noted to have a mass noted in the left upper lung. CT imaging at that time showed mass occupying left upper lung which was suspicious for malignancy. The patient underwent a bronchoscopy by Dr. Jose Alberto Lin on 10/07/2016. The findings showed tumor occupying the left mainstem bronchus. There was a tumor occluding the left upper and lower lobes. Other findings showed left vocal cord weakness. The pathology from the left upper lobe mass was positive for small-cell carcinoma of lung origin. Patient has a staging PET CT scan performed at [facility] and the PET scan re-demonstrated the left upper lobe mass with increased FDG uptake. There was a left pleural effusion. Other findings showed suspicious uptake in the liver and axioskeleton consistent with subtle metastasis. Patient has been followed closely by Dr. Festus Dia of Medical Oncology regarding his small-cell lung cancer diagnosis. Patient was subsequently admitted due to chest pain, acute shortness of breath. Cardiac enzymes and workup showed no evidence of myocardial infarction. Upon further imaging, patient was noted to have a known lung mass with a known malignancy. During this hospitalization, patient has met with Radiology regarding performing a thoracentesis and PleurX catheter. Furthermore, Radiation Therapy was consulted regarding palliative radiation therapy to the left upper lobe mass. PAST MEDICAL HISTORY: As per HPI. Coronary artery disease, hyperlipidemia, hypertension, diabetes. PAST SURGICAL HISTORY: Angioplasty secondary to coronary artery stenosis. MEDICATIONS: 1. Albuterol. 2. Aspirin. 3. Atorvastatin. 4. Ceftriaxone. 5. Clopidogrel. 6. Enoxaparin. 7. Guaifenesin/codeine. 8. Insulin. 9. Iohexol. 10. Lisinopril. 11. Melatonin. 12. Metoprolol. 13. Nitroglycerin. 14. Sodium chloride. 15. Zolpidem. FAMILY HISTORY: Positive for coronary artery disease. SOCIAL HISTORY: Positive for tobacco exposure, discontinued more than 6 years ago. REVIEW OF SYSTEMS: CONSTITUTIONAL: Positive for weight loss of more than 30 pounds over the past 3 months. Other findings are positive for dysphagia but negative for odynophagia. RESPIRATORY: As per HPI. CARDIOVASCULAR: Negative for chest pain, orthopnea. GASTROINTESTINAL: Positive for poor appetite. Negative for incontinence, diarrhea, hematochezia. Positive for nausea. GENITOURINARY: Positive for slow urinary stream. Negative for hematuria, dysuria, obstructive uropathy. NEUROLOGIC: Negative for severe headache, seizure activity, loss of consciousness. PHYSICAL EXAMINATION: Well-developed, well-nourished elderly-appearing gentleman lying in bed. No acute distress. Performance status is fair. VITAL SIGNS: Temperature 98, pulse 94, respiration 18, blood pressure 135/73, oxygen saturation 93% on 2 L. HEENT: No scleral icterus. Oral cavity shows no oral lesions. NECK: Without palpable lymphadenopathy. CHEST: Clear to auscultation. No audible wheezes. HEART: Regular rate and rhythm. ABDOMEN: Round, soft, non-tender. No organomegaly or masses. EXTREMITIES: No edema, tenderness or cyanosis. NEUROLOGIC: He is alert and oriented x3. Sensation is intact. Gait not assessed. Strength is within normal limits. 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 Diagnosis was made via bronchoscopy showing tumor occluding left upper and lower bronchi. 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 Patient also has a pleural effusion and is undergoing management for thoracentesis and PleurX catheter. Other PET scan findings show focus of uptake in the prostate consistent with prostate primary disease and also lymphadenopathy in the right subclavicular fossa along with subtle metastases on the bones and liver. Overall performance status is fair. RECOMMENDATIONS AND DISCUSSION: The patient and family members are aware of the current diagnosis and imaging findings. I discussed palliative radiation therapy to the lung mass to open up airway, improve respiratory status. I also agree with thoracentesis and PleurX. He is an optimal candidate. This will also improve his respiratory status. Patient will start palliative radiation therapy as an inpatient. He will start simulation and can receive his first treatment on 10/22/2016. The goal is to deliver a palliative dose of radiation therapy to improve his respiratory status. Also discussed the case with medical oncology nurse practitioner Otilia Lagos. Patient will start simulation tomorrow as scheduled. Planned radiation dose to the left lung is 3000 cGy delivered in 12 fractions at 250cGy per fraction via 16 MV photons. The patient will have CT based simulation for the purposes of radiation treatment planning. Radiation therapy will start as an inpatient and will continue as an outpatient once he is discharged from the hospital. JOSÉ LUIS
[2016-10-22] MEDS: ZOLPIDEM 5 MG TAB PO PRN ×2 (00:56→20:53)
[2016-10-22 07:21] LABS: Glucose,Whole Blood 108 mg/dL (75-99)
[2016-10-22] MEDS: INSULIN LISPRO (humaLOG) 300 UNIT/3 ML VIAL SQ SCH ×4 (07:44→20:51)
[2016-10-22] MEDS: LISINOPRIL 10 MG TAB PO SCH (08:28)
[2016-10-22] MEDS: ASPIRIN 81 MG CHEW PO SCH (08:28)
[2016-10-22] MEDS: CLOPIDOGREL 75 MG TAB PO SCH (08:28)
[2016-10-22] MEDS: METOPROLOL TARTRATE 25 MG TAB PO SCH ×2 (08:28→20:52)
[2016-10-22] MEDS: ENOXAPARIN 40 MG/0.4 ML SYRINGE SQ SCH (08:30)
[2016-10-22 11:48] LABS: ALT 207 U/L (21-72); AST 225 U/L (17-59); Alkaline Phosphatase 284 U/L (38-126); Anion Gap 10 mmol/L; Blood Urea Nitrogen 15 mg/dL (9-20); Calcium 9.3 mg/dL (8.4-10.2); Carbon Dioxide 26 mmol/L (22-30); Chloride 102 mmol/L (98-107); Glucose 116 mg/dL (74-99); Non-African American GFR(MDRD) >60 (>60 ml/min/1.73 sqM); Potassium 4.7 mmol/L (3.5-5.1); Sodium 138 mmol/L (137-145); Total Protein 5.7 g/dL (6.3-8.2)
[2016-10-22 12:25] LABS: Glucose,Whole Blood 113 mg/dL (75-99)
--- NOTE | 2016-10-22 13:04 | P.PN ---
Subjective This is an 81-year-old male who presented to the emergency department with complaints of increasing and progressive shortness of breath. The patient was recently seen by Dr. Yaw Keenan in the office and also with by Dr. Whitehead and Dr. 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 Has not seen either radiation or medical oncology as yet. He was apparently scheduled to see one of the medical oncologist today at 3 PM. He was admitted yesterday through the emergency room. I just recently saw him in his room. He short of breath. He is wearing nasal O2. Chest x-ray reveals complete white out of the left lung with significant cut off sign. This could be related to the pre-and/or tumor causing obstruction. In addition he appears that he probably has a significant left-sided pleural effusion. Ultrasound has been ordered. I did ask that radiates radiation oncology to see the patient as well as medical oncology while here in the hospital. Likely he will need thoracic surgery to have a Pleurx catheter placed for malignant left- sided pleural effusion. Anyway the patient's major issue shortness of breath as I mention. Seems a bit more comfortable today than he was in the emergency room. I did meet his at the bedside. She realizes that his overall prognosis is poor. I'm not sure what has been done in terms of the workup as yet. The patient is seen again today in follow-up 10/22/2016 on the oncology floor. He is awake and alert in no acute distress. He denies any worsening shortness of breath at this time. He is maintaining O2 saturations in the mid 90s on 2 L/ m per nasal cannula. He is currently afebrile. Complete the plan is for Pleurx catheter insertion versus single thoracentesis. He has been seen by Dr. Shah from radiation oncology and the plan is for treatments to be started as early as today. Objective - Vital Signs Vital signs: Vital Signs Temp 97.9 F 10/22/16 07:00 Pulse 90 10/22/16 07:00 Resp 18 10/22/16 08:00 BP 135/69 10/22/16 07:00 Pulse Ox 96 10/22/16 07:00 Intake & Output 10/21/16 10/22/16 10/22/16 18:59 06:59 18:59 Intake Total 700 590 480 Balance 700 590 480 Weight 92.986 kg Intake: IV 700 Sodium Chloride 0.9% 1, 700 000 ml @ 100 mls/hr IV . Q10H KYLE Rx#:[id number] Oral 590 480 Other: Voiding Method Urinal Urinal Urinal # Voids 2 2 - Exam GENERAL EXAM: Alert, active, comfortable in no apparent distress. HEAD: Normocephalic. EYES: Normal reaction of pupils, equal size. NOSE: Clear with pink turbinates. THROAT: No erythema or exudates. NECK: No masses, no JVD. CHEST: No chest wall deformity. LUNGS: Diminished throughout the left lung.. CVS: S1 and S2 normal with no audible murmurs, irregular rhythm. ABDOMEN: No hepatosplenomegaly, normal bowel sounds, no guarding or rigidity. SPINE: No scoliosis or deformity SKIN: No rashes CENTRAL NERVOUS SYSTEM: No focal deficits, tone is normal in all 4 extremities. Extremities: There is no significant peripheral edema. No clubbing, no cyanosis. Peripheral pulses are intact. - Labs CBC & Chem 7: 10/20/16 20:33 10/22/16 11:13 Labs: Abnormal Lab Results - Last 24 Hours (Table) 10/21/16 10/21/16 10/22/16 Range/Units 16:50 20:05 07:19 Glucose (74-99) mg/dL POC Glucose (mg/dL) 122 H 105 H 108 H (75-99) mg/dL AST (17-59) U/L ALT (21-72) U/L Alkaline Phosphatase (38-126) U/L Total Protein (6.3-8.2) g/dL Albumin (3.5-5.0) g/dL 10/22/16 10/22/16 Range/Units 11:13 12:14 Glucose 116 H (74-99) mg/dL POC Glucose (mg/dL) 113 H (75-99) mg/dL AST 225 H (17-59) U/L ALT 207 H (21-72) U/L Alkaline Phosphatase 284 H (38-126) U/L Total Protein 5.7 L (6.3-8.2) g/dL Albumin 2.8 L (3.5-5.0) g/dL Assessment and Plan Plan: Impression: #1 Small cell lung cancer with near complete white out of the left lung. #2 Acute hypoxic respiratory failure secondary to above. #3 Coronary artery disease. #4 Diabetes mellitus. #5 Hyperlipidemia. #6 History of smoking up to 3 packs per day however quit approximate 6 years ago. Plan: The patient was seen and evaluated by Dr. Malave. His x-ray and labs were reviewed. The plan is for radiation therapy and possible Pleurx catheter placement versus thoracentesis of the left lung for palliative treatment. He is in no acute respiratory distress currently. We'll continue to follow.
--- NOTE | 2016-10-22 17:45 | P.PN ---
Subjective Date of service 10/22/2016 Progress note being dictated for Dr. Qiu. Interval history: This is an 81-year-old gentleman admitted with acute hypoxic respiratory failure, pleural effusion low suspicion for pneumonia, elevated liver enzymes in a patient with recently diagnosed small cell lung CA. Evaluated by cardiothoracic surgery for potential Pleurx catheter placement. Thoracentesis also being discussed. Chest CT ordered and reporting metastatic disease; abnormal subcarinal left hilar, mediastinal adenopathy, extensive, occluded left main stem bronchus. Brain CT did not suggest metastatic malignancy. Complaining of loose stools, poor appetite. Productive cough with occasional white phlegm. Denies pain, chest pain or palpitations. Denies increase in shortness of breath. Maintaining O2 sats of 96% on 2 L nasal cannula. Evaluated by radiation oncology; Scheduled for first radiation treatment today. Worsening LFTs. Objective - Vital Signs Vital signs: Vital Signs Temp 97.7 F 10/22/16 15:00 Pulse 89 10/22/16 15:00 Resp 18 10/22/16 16:00 BP 140/72 10/22/16 15:00 Pulse Ox 96 10/22/16 15:00 Intake & Output 10/21/16 10/22/16 10/22/16 18:59 06:59 18:59 Intake Total 700 590 720 Balance 700 590 720 Weight 92.986 kg Intake: IV 700 Sodium Chloride 0.9% 1, 700 000 ml @ 100 mls/hr IV . Q10H KYLE Rx#:[id number] Oral 590 720 Other: Voiding Method Urinal Urinal Urinal # Voids 2 2 - Exam PHYSICAL EXAM: VITAL SIGNS: As above GENERAL: [Sitting up in bed, no acute distress] HEENT: [Pupils equal conjunctiva normal.] NECK: [Supple, no JVD] RESPIRATORY EFFORT:[Normal] LUNGS: Essentially clear, Left lung diminished CARDIOVASCULAR[regular S1 and S2, no murmurs rubs or gallops, no edema] GI: [Abdomen soft, nontender, positive bowel sounds.] PSYCH: [Alert and oriented -3, mood and affect normal.] NEURO: [No focal deficits, moves all 4 extremities, strength and sensation grossly intact] - Labs CBC & Chem 7: 10/20/16 20:33 10/22/16 11:13 Labs: Abnormal Lab Results - Last 24 Hours (Table) 10/21/16 10/22/16 10/22/16 Range/Units 20:05 07:19 11:13 Glucose 116 H (74-99) mg/dL POC Glucose (mg/dL) 105 H 108 H (75-99) mg/dL AST 225 H (17-59) U/L ALT 207 H (21-72) U/L Alkaline Phosphatase 284 H (38-126) U/L Total Protein 5.7 L (6.3-8.2) g/dL Albumin 2.8 L (3.5-5.0) g/dL 10/22/16 Range/Units 12:14 Glucose (74-99) mg/dL POC Glucose (mg/dL) 113 H (75-99) mg/dL AST (17-59) U/L ALT (21-72) U/L Alkaline Phosphatase (38-126) U/L Total Protein (6.3-8.2) g/dL Albumin (3.5-5.0) g/dL Assessment and Plan Plan: 1. [Acute hypoxic respiratory failure secondary to large left pleural effusion 4.4 cm, nearly complete account of left lung, low suspicion for pneumonia]. 2. [Elevated liver enzymes secondary to liver metastasis, pancreatic mass versus adenopathy, cholelithiasis per ultrasound.]. 3. [Recently diagnosed small cell lung CA], awaiting initiation of chemotherapy. 4. [Hypertension]. 5. [Hyperlipidemia]. 6. [CAD]. 7. [Diabetes mellitus]. 8. History of nicotine dependence. Plan: Continue on current medication regime ,monitoring and symptomatic treatment. Awaiting first radiation treatment today. Further recommendations pending from cardiothoracic surgery regarding Pleurx catheter placement versus thoracentesis of left lung. Follow closely with multiple consults. Prognosis guarded given multiple complex medical issues. Further recommendations to follow. The impression and plan of care has been dictated as directed. : I performed a H&P examination of this patient and discussed the same with the dictator. I agree with the dictator's note. Any additional findings/opinions/ etc. will be noted.
[2016-10-22] MEDS: SODIUM CHLORIDE 0.9% 1,000 ML IV SCH ×2 (17:59→23:55)
[2016-10-22 20:11] LABS: Glucose,Whole Blood 104 mg/dL (75-99)
[2016-10-22] MEDS: ATORVASTATIN 40 MG TAB PO SCH (20:51)
[2016-10-22 22:45] LABS: Appearance,Urine Clear (Clear); Bilirubin,Urine Negative (Negative); Glucose,Urine (UA) Negative (Negative); Ketones,Urine 1+ (Negative); Leukocyte Esterase,Urine Negative (Negative); Nitrite,Urine Negative (Negative); PH, Urine 5.5 (5.0-8.0); Protein,Urine Trace (Negative); UA Billing (MACRO vs. MICRO) CHEM
[2016-10-23] MEDS: MELATONIN 3 MG TABLET PO PRN ×2 (02:47→21:54)
[2016-10-23] MEDS: SODIUM CHLORIDE 0.9% 1,000 ML IV SCH ×2 (05:17→17:51)
[2016-10-23 07:08] LABS: Glucose,Whole Blood 91 mg/dL (75-99)
[2016-10-23] MEDS: INSULIN LISPRO (humaLOG) 300 UNIT/3 ML VIAL SQ SCH ×4 (07:44→21:55)
[2016-10-23] MEDS: CLOPIDOGREL 75 MG TAB PO SCH (09:13)
[2016-10-23] MEDS: ASPIRIN 81 MG CHEW PO SCH (09:13)
[2016-10-23] MEDS: ENOXAPARIN 40 MG/0.4 ML SYRINGE SQ SCH (09:13)
[2016-10-23] MEDS: LISINOPRIL 10 MG TAB PO SCH (09:13)
[2016-10-23] MEDS: METOPROLOL TARTRATE 25 MG TAB PO SCH ×2 (09:13→21:55)
[2016-10-23] MEDS ORDERED: traMADol 50 MG TAB PO PRN (10:03)
--- NOTE | 2016-10-23 11:21 | P.PN ---
Subjective 82-year-old male with a recent diagnosis of small cell lung cancer. Presented to the emergency department with complaints of shortness of breath and complete opacification of left hemithorax. Has been started on radiation therapy. Medical oncology has seen the patient. The patient seemed be resting comfortably. Initially I consulted thoracic surgery possible Pleurx catheter placement. They decided that we will go ahead with radiation therapy initially to see whether or not we can improve the left chest. He did have pleural effusion on the left side, likely malignant. The patient seemed be resting comfortably. We'll continue to follow. No respiratory complaints at this time. Surprisingly very little symptoms given the x-ray and CAT scan appearance of the left chest. Objective - Vital Signs Vital signs: Vital Signs Temp 97.5 F L 10/23/16 07:00 Pulse 99 10/23/16 07:00 Resp 16 10/23/16 08:00 BP 139/74 10/23/16 07:00 Pulse Ox 94 L 10/23/16 07:00 Intake & Output 10/22/16 10/23/16 10/23/16 18:59 06:59 18:59 Intake Total 720 1350 Output Total 250 Balance 720 1100 Intake: IV 1000 Sodium Chloride 0.9% 1, 1000 000 ml @ 100 mls/hr IV . Q10H KYLE Rx#:[id number] Intake, IV Titration 100 Amount cefTRIAXone 1,000 mg In 100 Sodium Chloride 0.9% 50 ml @ 100 mls/hr IVPB Q24H KYLE Rx#:[id number] Oral 720 250 Output: Urine 250 Other: Voiding Method Urinal Urinal Toilet Urinal # Voids 2 2 # Bowel Movements 1 - Exam No acute distress, oriented 3. HEENT examination is grossly unremarkable. Mucous membranes are moist. No oral lesions. Neck supple. Full range of motion. No adenopathy. Neck veins are flat. Cardiovascular examination reveals distant heart sounds. S1-S2 normal. Heart rate in the mid 80s. No murmur. Lungs reveal diminished breath sounds on the left. A few scattered rhonchi throughout. No wheezes or crackles. Abdomen soft bowel sounds are heard. Extremities are intact. - Labs CBC & Chem 7: 10/20/16 20:33 10/22/16 11:13 Labs: Abnormal Lab Results - Last 24 Hours (Table) 10/22/16 10/22/1617 Range/Units 11:13 12:14 20:09 Glucose 116 H (74-99) mg/dL POC Glucose (mg/dL) 113 H 104 H (75-99) mg/dL AST 225 H (17-59) U/L ALT 207 H (21-72) U/L Alkaline Phosphatase 284 H (38-126) U/L Total Protein 5.7 L (6.3-8.2) g/dL Albumin 2.8 L (3.5-5.0) g/dL Urine Protein (Negative) Urine Ketones (Negative) 10/22/16 Range/Units 21:00 Glucose (74-99) mg/dL POC Glucose (mg/dL) (75-99) mg/dL AST (17-59) U/L ALT (21-72) U/L Alkaline Phosphatase (38-126) U/L Total Protein (6.3-8.2) g/dL Albumin (3.5-5.0) g/dL Urine Protein Trace H (Negative) Urine Ketones 1+ H (Negative) Assessment and Plan (1) Small cell lung cancer Status: Acute (2) Malignant pleural effusion Status: Acute (3) Collapse of left lung Status: Acute (4) Atelectasis of left lung Status: Acute (5) Mass of left lung Status: Acute (6) Mass of left lung Status: Acute Plan: plan dated 10/21/2016 The patient recently had a diagnosis but no additional staging and/or evaluation by medical and/or radiation oncologist as yet been done. Will have both medical medical and radiation oncologist see the patient today. The patient will also have an ultrasound left chest. Will likely need a Pleurx catheter in left pleural space malignant pleural effusion. His seems be realistic and that she realizes is a bad cancer without cure. The patient should be started on treatment a right away anyway. He seems to be agreeable to that. Does not appear to be any significant distress at this point. Is wearing nasal O2. Feels better today than he did yesterday when he came in. Again we will have thoracic surgery medical oncology and radiation oncology see the patient. I did look at his x-ray looked up his path report that was recently posted. Additional recommendations suggestions are forthcoming. Plan dated 10/23/2016 The patient has been seen by medical oncology and radiation therapy. Radiation oncologist started radiation on this patient. Pleurx catheter placement is being considered but currently on hold. The patient is doing reasonably well. We'll continue to follow. Not much in the way respiratory complaints at this time. Time with Patient: Less than 30
[2016-10-23 11:41] LABS: Glucose,Whole Blood 123 mg/dL (75-99)
--- NOTE | 2016-10-23 11:55 | XR ---
EXAMINATION TYPE: XR abdomen 2V DATE OF EXAM: 10/23/2016 11:34 AM COMPARISON: NONE HISTORY: Abdominal pain TECHNIQUE: One view abdominal series FINDINGS: The osseous structures are intact. The bowel gas pattern is nonspecific. Contrast within the colon n oted. Findings suggest previous diverticular disease. Arthropathy of the hips. Vascular calcification s noted. There is a small right pleural effusion and complete consolidation of the left lung. IMPRESSION: 1. Nonspecific abdomen. 2. Complete consolidation of the left lung with small right pleural effusion.
[2016-10-23] MEDS: PANTOPRAZOLE 40 MG TABLET PO SCH (12:22)
[2016-10-23] MEDS: HYDROcodone/APAP 7.5-325MG 1 EACH TAB PO PRN (15:29)
--- NOTE | 2016-10-23 16:54 | P.PN ---
Subjective Date of service 10/23/2016 Progress note being dictated for Dr. Qiu. Interval history: This is an 81-year-old gentleman admitted with acute hypoxic respiratory failure, pleural effusion low suspicion for pneumonia, elevated liver enzymes in a patient with recently diagnosed small cell lung CA. Evaluated by cardiothoracic surgery, potential Pleurx catheter placement on hold. Second radiation treatment scheduled for today.loose stools, negative for C. difficile colitis . Complains of right flank pain, mid epigastric tenderness, abdomen mildly distended. UA negative. Abdominal x-ray ordered and pending. Hepatitis serology negative. Denies pain, chest pain or palpitations. Objective - Vital Signs Vital signs: Vital Signs Temp 97.5 F L 10/23/16 07:00 Pulse 99 10/23/16 07:00 Resp 16 10/23/16 08:00 BP 139/74 10/23/16 07:00 Pulse Ox 94 L 10/23/16 07:00 Intake & Output 10/22/16 10/23/16 10/23/16 18:59 06:59 18:59 Intake Total 720 1350 Output Total 250 Balance 720 1100 Intake: IV 1000 Sodium Chloride 0.9% 1, 1000 000 ml @ 100 mls/hr IV . Q10H KYLE Rx#:[id number] Intake, IV Titration 100 Amount cefTRIAXone 1,000 mg In 100 Sodium Chloride 0.9% 50 ml @ 100 mls/hr IVPB Q24H KYLE Rx#:[id number] Oral 720 250 Output: Urine 250 Other: Voiding Method Urinal Urinal Toilet Urinal # Voids 2 2 # Bowel Movements 1 - Exam PHYSICAL EXAM: VITAL SIGNS: As above GENERAL: [Sitting up in bed, no acute distress] HEENT: [Pupils equal conjunctiva normal.] NECK: [Supple, no JVD] RESPIRATORY EFFORT:[Normal] LUNGS: Essentially clear, Left lung diminished , occasional coarse rhonchi throughout CARDIOVASCULAR[regular S1 and S2, no murmurs rubs or gallops, no edema] GI: [Abdomen soft, nontender, positive bowel sounds.] PSYCH: [Alert and oriented -3, mood and affect normal.] NEURO: [No focal deficits, moves all 4 extremities, strength and sensation grossly intact] - Labs CBC & Chem 7: 10/20/16 20:33 10/22/16 11:13 Labs: Abnormal Lab Results - Last 24 Hours (Table) 10/22/16 10/22/16 10/22/16 Range/Units 11:13 12:14 20:09 Glucose 116 H (74-99) mg/dL POC Glucose (mg/dL) 113 H 104 H (75-99) mg/dL AST 225 H (17-59) U/L ALT 207 H (21-72) U/L Alkaline Phosphatase 284 H (38-126) U/L Total Protein 5.7 L (6.3-8.2) g/dL Albumin 2.8 L (3.5-5.0) g/dL Urine Protein (Negative) Urine Ketones (Negative) 10/22/16 Range/Units 21:00 Glucose (74-99) mg/dL POC Glucose (mg/dL) (75-99) mg/dL AST (17-59) U/L ALT (21-72) U/L Alkaline Phosphatase (38-126) U/L Total Protein (6.3-8.2) g/dL Albumin (3.5-5.0) g/dL Urine Protein Trace H (Negative) Urine Ketones 1+ H (Negative) Assessment and Plan Plan: 1. [Acute hypoxic respiratory failure secondary to large left pleural effusion 4.4 cm, nearly complete account of left lung, low suspicion for pneumonia]. 2. [Elevated liver enzymes secondary to liver metastasis, pancreatic mass versus adenopathy, cholelithiasis per ultrasound.]. 3. [Recently diagnosed small cell lung CA], awaiting initiation of chemotherapy. 4. [Hypertension]. 5. [Hyperlipidemia]. 6. [CAD]. 7. [Diabetes mellitus]. 8. History of nicotine dependence. Plan: Continue on current medication regime ,monitoring and symptomatic treatment. Abdominal x-ray pending. Second radiation treatment today. Pleurx catheter placement on hold. Follow closely with multiple consults. Prognosis guarded given multiple complex medical issues. Further recommendations to follow. The impression and plan of care has been dictated as directed. : I performed a H&P examination of this patient and discussed the same with the dictator. I agree with the dictator's note. Any additional findings/opinions/ etc. will be noted.
[2016-10-23 20:19] LABS: Glucose,Whole Blood 123 mg/dL (75-99)
[2016-10-23] MEDS: ATORVASTATIN 40 MG TAB PO SCH (21:55)
[2016-10-24 07:17] LABS: Basophils % (A) 0 %; CH 30.9; CHCM 31.5; Eosinophils % (A) 0 %; HCT 42.9 % (39.0-53.0); HDW 2.46; Luc # (Auto) 0.12; Luc % (Auto) 2; Lymphocytes # (A) 1.1 k/uL (1.0-4.8); Lymphocytes % (A) 14 %; MCHC 32.5 g/dL (31.0-37.0); MCV 98.4 fL (80.0-100.0); Mean Platelet Volume 7.2; Monocytes # (A) 0.4 k/uL (0-1.0); Monocytes % (A) 5 %; Neutrophils # (A) 6.3 k/uL (1.3-7.7); Neutrophils % (A) 79 %; RBC 4.37 m/uL (4.30-5.90); RDW 13.9 % (11.5-15.5); WBC 7.9 k/uL (3.8-10.6); WBC (Perox) 8.43
[2016-10-24 07:25] LABS: Glucose,Whole Blood 112 mg/dL (75-99)
[2016-10-24 07:28] LABS: ALT 222 U/L (21-72); AST 214 U/L (17-59); Alkaline Phosphatase 313 U/L (38-126); Anion Gap 7 mmol/L; Blood Urea Nitrogen 14 mg/dL (9-20); Calcium 9.1 mg/dL (8.4-10.2); Carbon Dioxide 26 mmol/L (22-30); Chloride 105 mmol/L (98-107); Glucose 105 mg/dL (74-99); Non-African American GFR(MDRD) >60 (>60 ml/min/1.73 sqM); Potassium 4.7 mmol/L (3.5-5.1); Sodium 138 mmol/L (137-145); Total Bilirubin 0.9 mg/dL (0.2-1.3); Total Protein 5.3 g/dL (6.3-8.2)
[2016-10-24] MEDS: INSULIN LISPRO (humaLOG) 300 UNIT/3 ML VIAL SQ SCH ×4 (07:46→22:12)
[2016-10-24] MEDS: ENOXAPARIN 40 MG/0.4 ML SYRINGE SQ SCH (07:47)
[2016-10-24] MEDS: CLOPIDOGREL 75 MG TAB PO SCH (07:47)
[2016-10-24] MEDS: DRONABINOL 2.5 MG CAP PO SCH ×2 (07:47→18:08)
[2016-10-24] MEDS: METOPROLOL TARTRATE 25 MG TAB PO SCH ×2 (07:48→22:11)
[2016-10-24] MEDS: HYDROcodone/APAP 7.5-325MG 1 EACH TAB PO PRN (07:48)
[2016-10-24] MEDS: LISINOPRIL 10 MG TAB PO SCH (07:48)
[2016-10-24] MEDS: ASPIRIN 81 MG CHEW PO SCH (07:48)
[2016-10-24] MEDS: PANTOPRAZOLE 40 MG TABLET PO SCH (07:48)
[2016-10-24] MEDS: SODIUM CHLORIDE 0.9% 1,000 ML IV SCH ×2 (09:32→18:38)
--- NOTE | 2016-10-24 11:22 | P.PN ---
Subjective 82-year-old male with a recent diagnosis of small cell lung cancer. Presented to the emergency department with complaints of shortness of breath and complete opacification of left hemithorax. Has been started on radiation therapy. Medical oncology has seen the patient. The patient seemed be resting comfortably. Initially I consulted thoracic surgery possible Pleurx catheter placement. They decided that we will go ahead with radiation therapy initially to see whether or not we can improve the left chest. He did have pleural effusion on the left side, likely malignant. The patient seemed be resting comfortably. We'll continue to follow. No respiratory complaints at this time. Surprisingly very little symptoms given the x-ray and CAT scan appearance of the left chest. Progress note dated 10/24/2016 82-year-old gentleman with a history of small cell lung cancer. Recently diagnosed by my partner and Dr. Rosa. The patient is undergoing radiation therapy. I do not believe he has had started with chemotherapy as yet. I did ask thoracic surgery to consider Pleurx catheter on him but apparently they felt the fluid in his left chest wasn't adequate. Anyway, the patient's about the same today as he was yesterday. He is a no code. His biggest issue shortness of breath particularly on exertion. Not coughing up any phlegm. No fever no chills. Not coughing up any blood. His overall prognosis is poor. Objective - Vital Signs Vital signs: Vital Signs Temp 97.9 F 10/24/16 07:00 Pulse 89 10/24/16 07:00 Resp 17 10/24/16 07:00 BP 145/76 10/24/16 07:00 Pulse Ox 91 L 10/24/16 07:00 Intake & Output 10/23/16 10/24/16 10/24/16 18:59 06:59 18:59 Intake Total 360 590 Balance 360 590 Weight 92.986 kg Intake: Oral 360 590 Other: Voiding Method Toilet Toilet Toilet Urinal Urinal Urinal # Voids 3 2 - Exam No acute distress, oriented 3. HEENT examination is grossly unremarkable. Mucous membranes are moist. No oral lesions. Neck supple. Full range of motion. No adenopathy. Neck veins are flat. Cardiovascular examination reveals distant heart sounds. S1-S2 normal. Heart rate in the mid 80s. No murmur. Lungs reveal diminished breath sounds on the left. A few scattered rhonchi throughout. No wheezes or crackles. Abdomen soft bowel sounds are heard. Extremities are intact. - Labs CBC & Chem 7: 10/24/16 06:41 10/24/16 06:41 Labs: Abnormal Lab Results - Last 24 Hours (Table) 10/23/16 10/23/16 10/24/16 Range/Units 11:39 20:18 06:41 Glucose 105 H (74-99) mg/dL POC Glucose (mg/dL) 123 H 123 H (75-99) mg/dL AST 214 H (17-59) U/L ALT 222 H (21-72) U/L Alkaline Phosphatase 313 H (38-126) U/L Total Protein 5.3 L (6.3-8.2) g/dL Albumin 2.6 L (3.5-5.0) g/dL 10/24/16 Range/Units 07:04 Glucose (74-99) mg/dL POC Glucose (mg/dL) 112 H (75-99) mg/dL AST (17-59) U/L ALT (21-72) U/L Alkaline Phosphatase (38-126) U/L Total Protein (6.3-8.2) g/dL Albumin (3.5-5.0) g/dL Assessment and Plan (1) Small cell lung cancer Status: Acute (2) Malignant pleural effusion Status: Acute (3) Collapse of left lung Status: Acute (4) Atelectasis of left lung Status: Acute (5) Mass of left lung Status: Acute (6) Mass of left lung Status: Acute Plan: plan dated 10/21/2016 The patient recently had a diagnosis but no additional staging and/or evaluation by medical and/or radiation oncologist as yet been done. Will have both medical medical and radiation oncologist see the patient today. The patient will also have an ultrasound left chest. Will likely need a Pleurx catheter in left pleural space malignant pleural effusion. His seems be realistic and that she realizes is a bad cancer without cure. The patient should be started on treatment a right away anyway. He seems to be agreeable to that. Does not appear to be any significant distress at this point. Is wearing nasal O2. Feels better today than he did yesterday when he came in. Again we will have thoracic surgery medical oncology and radiation oncology see the patient. I did look at his x-ray looked up his path report that was recently posted. Additional recommendations suggestions are forthcoming. Plan dated 10/23/2016 The patient has been seen by medical oncology and radiation therapy. Radiation oncologist started radiation on this patient. Pleurx catheter placement is being considered but currently on hold. The patient is doing reasonably well. We'll continue to follow. Not much in the way respiratory complaints at this time. Plan dated 10/24/2016 The patient will continue with the current treatment plan which would include both chemo and radiation therapy. The small cell cancer should be very responsive to especially chemotherapy. A Pleurx catheter is currently on hold as thoracic surgery feels that is not enough fluid for proper catheter placement. This was explained to the patient. No additional recommendations are made. We'll continue to follow. His overall prognosis obviously very poor. Time with Patient: Less than 30
[2016-10-24 11:46] LABS: Glucose,Whole Blood 101 mg/dL (75-99)
--- NOTE | 2016-10-24 12:12 | PN ---
Patient is an 81-year-old admitted with acute hypoxic respiratory failure secondary to left-sided cancerous lesion and cancerous mass with a lung that is collapsed and little bit of pleural effusion. Patient does not have enough fluid to put a PleurX catheter drain. Patient is complaining of some low back pain. Beyond that, his shortness of breath did not improve much. REVIEW OF SYSTEMS: CARDIOVASCULAR: No chest pain, no orthopnea, no PND, no palpitations. RESPIRATORY: As described in HPI. GASTROINTESTINAL: No diarrhea, nausea or vomiting. No abdominal pain. Normoactive bowel sounds. NEUROLOGIC: No headaches, no weakness, no numbness. Medications were reviewed. PHYSICAL EXAMINATION: Temperature 97.9, pulse of 89, respiratory rate 17, blood pressure 145/76, saturating at 91% on 2 L O2 by nasal cannula. PHYSICAL EXAMINATION: GENERAL: The patient is alert and oriented x3, not in any acute distress. Well developed, well nourished. HEENT: Pupils are round and equally reacting to light. EOMI. No scleral icterus. No conjunctival pallor. Normocephalic, atraumatic. No pharyngeal erythema. No thyromegaly. CARDIOVASCULAR: S1 and S2 present. No murmurs, rubs, or gallops. LUNG EXAMINATION: No significant change compared to yesterday. Fairly good air entry in bilateral lung wilcox and patient has ( ) in the left posterior lung wilcox. ABDOMEN: Soft, nontender, nondistended, normoactive bowel sounds. No palpable organomegaly. MUSCULOSKELETAL: No joint swelling or deformity. EXTREMITIES: No cyanosis, clubbing, or pedal edema. NEUROLOGICAL: Gross neurological examination did not reveal any focal deficits. SKIN: No rashes. ASSESSMENT AND PLAN: 1. Acute hypoxic respiratory failure secondary to collapsed lung and pleural effusion. My suspicion of pneumonia is low, ceftriaxone was discontinued. 2. Elevated liver enzymes with liver metastasis. The rest of the workup is negative. 3. Recently diagnosed small cell lung cancer. 4. Hypertension. 5. Hyperlipidemia. 6. Coronary artery disease. 7. Diabetes mellitus type 2 with fairly controlled blood sugars. PLAN: Patient is undergoing radiation therapy for the mass which is collapsing almost entire left lung with a bit of pleural effusion. Multiple consultants continue to follow the patient. Patient although does not have any significant respiratory improvement and disposition unknown at this point of time, which will be once his respiratory status improves.
[2016-10-24 17:05] LABS: Glucose,Whole Blood 108 mg/dL (75-99)
[2016-10-24 20:12] LABS: Glucose,Whole Blood 147 mg/dL (75-99)
[2016-10-24] MEDS: ATORVASTATIN 40 MG TAB PO SCH (22:12)
[2016-10-25] MEDS: MELATONIN 3 MG TABLET PO PRN ×2 (01:35→23:01)
[2016-10-25] MEDS: HYDROcodone/APAP 7.5-325MG 1 EACH TAB PO PRN (05:36)
[2016-10-25] MEDS: IPRATROPIUM-ALBUTEROL 3 ML NEB INHALATION PRN ×2 (07:13→19:36)
[2016-10-25 07:21] LABS: Glucose,Whole Blood 100 mg/dL (75-99)
[2016-10-25] MEDS: PANTOPRAZOLE 40 MG TABLET PO SCH (08:23)
[2016-10-25] MEDS: DRONABINOL 2.5 MG CAP PO SCH ×2 (08:23→17:31)
[2016-10-25] MEDS: ASPIRIN 81 MG CHEW PO SCH (08:23)
[2016-10-25] MEDS: ENOXAPARIN 40 MG/0.4 ML SYRINGE SQ SCH (08:24)
[2016-10-25] MEDS: LISINOPRIL 10 MG TAB PO SCH (08:24)
[2016-10-25] MEDS: METOPROLOL TARTRATE 25 MG TAB PO SCH ×2 (08:24→20:33)
[2016-10-25] MEDS: CLOPIDOGREL 75 MG TAB PO SCH (08:24)
[2016-10-25 08:25] VITALS: RESP 17
[2016-10-25] MEDS: INSULIN LISPRO (humaLOG) 300 UNIT/3 ML VIAL SQ SCH ×4 (08:25→20:32)
[2016-10-25] MEDS: SODIUM CHLORIDE 0.9% 1,000 ML IV SCH ×2 (08:29→15:38)
[2016-10-25 10:24] LABS: CHCM 31.2; HCT 43.3 % (39.0-53.0); HGB 13.9 gm/dL (13.0-17.5); Hypochromasia Slight; MCH 32.1 pg (25.0-35.0); MCHC 32.2 g/dL (31.0-37.0); MCV 99.8 fL (80.0-100.0); Mean Platelet Volume 7.3; RBC 4.34 m/uL (4.30-5.90); RDW 14.1 % (11.5-15.5); WBC 8.4 k/uL (3.8-10.6)
[2016-10-25 10:30] LABS: ALT 214 U/L (21-72); AST 211 U/L (17-59); Alkaline Phosphatase 318 U/L (38-126); Anion Gap 7 mmol/L; Blood Urea Nitrogen 13 mg/dL (9-20); Calcium 8.9 mg/dL (8.4-10.2); Carbon Dioxide 24 mmol/L (22-30); Chloride 107 mmol/L (98-107); Glucose 157 mg/dL (74-99); Non-African American GFR(MDRD) >60 (>60 ml/min/1.73 sqM); Potassium 4.2 mmol/L (3.5-5.1); Sodium 138 mmol/L (137-145); Total Protein 5.3 g/dL (6.3-8.2)
[2016-10-25 11:33] LABS: Glucose,Whole Blood 120 mg/dL (75-99)
--- NOTE | 2016-10-25 11:46 | P.PN ---
Subjective 82-year-old male with a recent diagnosis of small cell lung cancer. Presented to the emergency department with complaints of shortness of breath and complete opacification of left hemithorax. Has been started on radiation therapy. Medical oncology has seen the patient. The patient seemed be resting comfortably. Initially I consulted thoracic surgery possible Pleurx catheter placement. They decided that we will go ahead with radiation therapy initially to see whether or not we can improve the left chest. He did have pleural effusion on the left side, likely malignant. The patient seemed be resting comfortably. We'll continue to follow. No respiratory complaints at this time. Surprisingly very little symptoms given the x-ray and CAT scan appearance of the left chest. Progress note dated 10/24/2016 82-year-old gentleman with a history of small cell lung cancer. Recently diagnosed by my partner and Dr. Rosa. The patient is undergoing radiation therapy. I do not believe he has had started with chemotherapy as yet. I did ask thoracic surgery to consider Pleurx catheter on him but apparently they felt the fluid in his left chest wasn't adequate. Anyway, the patient's about the same today as he was yesterday. He is a no code. His biggest issue shortness of breath particularly on exertion. Not coughing up any phlegm. No fever no chills. Not coughing up any blood. His overall prognosis is poor. Progress note dated 10/25/2016 82-year-old gentleman with a history of small cell lung cancer. Recently diagnosed by my partner in our nurse practitioner. The patient is undergoing radiation therapy. I asked thoracic surgery to see the patient for possible Pleurx catheter but they did not feel comfortable given the fact that the fluid accumulation on that side was mild to moderate at best. Anyways primary complaints included shortness of breath and complete white out of the left chest area. Doing a bit better today. We'll continue with radiation therapy and also needs to see the medical oncologist for medical therapy. Objective - Vital Signs Vital signs: Vital Signs Temp 98.0 F 10/25/16 07:00 Pulse 90 10/25/16 07:23 Resp 17 10/25/16 07:00 BP 159/74 10/25/16 07:00 Pulse Ox 94 L 10/25/16 07:13 Intake & Output 10/24/16 10/25/16 10/25/16 18:59 06:59 18:59 Intake Total 1180 Output Total 100 Balance 1080 Intake: Oral 1180 Output: Urine 100 Other: Voiding Method Toilet Toilet Urinal Urinal # Voids 1 1 # Bowel Movements 1 1 - Exam No acute distress, oriented 3. HEENT examination is grossly unremarkable. Mucous membranes are moist. No oral lesions. Neck supple. Full range of motion. No adenopathy. Neck veins are flat. Cardiovascular examination reveals distant heart sounds. S1-S2 normal. Heart rate in the mid 80s. No murmur. Lungs reveal diminished breath sounds on the left. A few scattered rhonchi throughout. No wheezes or crackles. Abdomen soft bowel sounds are heard. Extremities are intact. - Labs CBC & Chem 7: 10/25/16 09:56 10/25/16 09:56 Labs: Abnormal Lab Results - Last 24 Hours (Table) 10/24/16 10/24/16 10/24/16 Range/Units 11:32 16:46 20:11 Glucose (74-99) mg/dL POC Glucose (mg/dL) 101 H 108 H 147 H (75-99) mg/dL AST (17-59) U/L ALT (21-72) U/L Alkaline Phosphatase (38-126) U/L Total Protein (6.3-8.2) g/dL Albumin (3.5-5.0) g/dL 10/25/16 10/25/16 10/25/16 Range/Units 07:10 09:56 11:21 Glucose 157 H (74-99) mg/dL POC Glucose (mg/dL) 100 H 120 H (75-99) mg/dL AST 211 H (17-59) U/L ALT 214 H (21-72) U/L Alkaline Phosphatase 318 H (38-126) U/L Total Protein 5.3 L (6.3-8.2) g/dL Albumin 2.5 L (3.5-5.0) g/dL Assessment and Plan (1) Small cell lung cancer Status: Acute (2) Malignant pleural effusion Status: Acute (3) Collapse of left lung Status: Acute (4) Atelectasis of left lung Status: Acute (5) Mass of left lung Status: Acute (6) Mass of left lung Status: Acute Plan: plan dated 10/21/2016 The patient recently had a diagnosis but no additional staging and/or evaluation by medical and/or radiation oncologist as yet been done. Will have both medical medical and radiation oncologist see the patient today. The patient will also have an ultrasound left chest. Will likely need a Pleurx catheter in left pleural space malignant pleural effusion. His seems be realistic and that she realizes is a bad cancer without cure. The patient should be started on treatment a right away anyway. He seems to be agreeable to that. Does not appear to be any significant distress at this point. Is wearing nasal O2. Feels better today than he did yesterday when he came in. Again we will have thoracic surgery medical oncology and radiation oncology see the patient. I did look at his x-ray looked up his path report that was recently posted. Additional recommendations suggestions are forthcoming. Plan dated 10/23/2016 The patient has been seen by medical oncology and radiation therapy. Radiation oncologist started radiation on this patient. Pleurx catheter placement is being considered but currently on hold. The patient is doing reasonably well. We'll continue to follow. Not much in the way respiratory complaints at this time. Plan dated 10/24/2016 The patient will continue with the current treatment plan which would include both chemo and radiation therapy. The small cell cancer should be very responsive to especially chemotherapy. A Pleurx catheter is currently on hold as thoracic surgery feels that is not enough fluid for proper catheter placement. This was explained to the patient. No additional recommendations are made. We'll continue to follow. His overall prognosis obviously very poor. Plan dated 10/25/2016 The patient will continue with his current regimen. We'll continue to follow. Medical oncology has been consulted. Radiation therapy is currently seeing patient. Thoracic surgery was also consulted. Time with Patient: Less than 30
[2016-10-25] MEDS: POLYETHYLENE GLYCOL 3350 17 GM POWD.PACK PO SCH (12:31)
--- NOTE | 2016-10-25 14:31 | PN ---
( ) PHYSICAL EXAMINATION: VITAL SIGNS: Temperature 98.0, pulse of 91, respiratory rate of 17, blood pressure is 159/74, saturating at 94% on 2 L of O2 by nasal cannula. ( )
[2016-10-25 17:05] LABS: Glucose,Whole Blood 116 mg/dL (75-99)
[2016-10-25 20:22] LABS: Glucose,Whole Blood 151 mg/dL (75-99)
[2016-10-25] MEDS: ATORVASTATIN 40 MG TAB PO SCH (20:33)
[2016-10-26 07:33] LABS: Glucose,Whole Blood 98 mg/dL (75-99)
[2016-10-26 07:46] LABS: CHCM 31.6; HCT 45.9 % (39.0-53.0); HDW 2.55; HGB 14.5 gm/dL (13.0-17.5); MCH 31.1 pg (25.0-35.0); MCHC 31.5 g/dL (31.0-37.0); MCV 98.9 fL (80.0-100.0); Mean Platelet Volume 7.2; RBC 4.65 m/uL (4.30-5.90); RDW 14.3 % (11.5-15.5); WBC 8.3 k/uL (3.8-10.6)
[2016-10-26 08:01] LABS: ALT 258 U/L (21-72); AST 269 U/L (17-59); Alkaline Phosphatase 402 U/L (38-126); Anion Gap 8 mmol/L; Blood Urea Nitrogen 12 mg/dL (9-20); Calcium 9.5 mg/dL (8.4-10.2); Carbon Dioxide 27 mmol/L (22-30); Chloride 103 mmol/L (98-107); Glucose 112 mg/dL (74-99); Non-African American GFR(MDRD) >60 (>60 ml/min/1.73 sqM); Sodium 138 mmol/L (137-145); Total Bilirubin 1.2 mg/dL (0.2-1.3); Total Protein 5.7 g/dL (6.3-8.2)
[2016-10-26] MEDS: INSULIN LISPRO (humaLOG) 300 UNIT/3 ML VIAL SQ SCH ×3 (08:14→17:29)
[2016-10-26] MEDS: ASPIRIN 81 MG CHEW PO SCH (08:17)
[2016-10-26] MEDS: LISINOPRIL 10 MG TAB PO SCH (08:17)
[2016-10-26] MEDS: DRONABINOL 2.5 MG CAP PO SCH ×2 (08:17→18:45)
[2016-10-26] MEDS: PANTOPRAZOLE 40 MG TABLET PO SCH (08:17)
[2016-10-26] MEDS: ENOXAPARIN 40 MG/0.4 ML SYRINGE SQ SCH (08:17)
[2016-10-26] MEDS: METOPROLOL TARTRATE 25 MG TAB PO SCH (08:17)
[2016-10-26] MEDS: POLYETHYLENE GLYCOL 3350 17 GM POWD.PACK PO SCH (08:17)
[2016-10-26] MEDS: CLOPIDOGREL 75 MG TAB PO SCH (08:17)
[2016-10-26 11:55] LABS: Glucose,Whole Blood 127 mg/dL (75-99)
--- NOTE | 2016-10-26 15:38 | P.PN ---
Subjective Principal diagnosis: SOB, ELEAZAR Pt is seen today in follow-up. Patient is feeling a bit frustrated that he has to continue to be hospitalized. Patient states he has oxygen at home, he lives in a mobile home on one floor, he does admit there are 5 steps to getting into the mobile home, he states he has 4 sons nearby and 2 close friends that are currently staying with him and his to assist. Patient states he is eating and drinking without nausea or vomiting, some foods don't smell well, he is denying chest pain, palpitations, abdominal pain or cramping, diarrhea or constipation. Objective - Vital Signs Vital signs: Vital Signs Temp 97.8 F 10/26/16 07:00 Pulse 97 10/26/16 07:00 Resp 17 10/26/16 07:00 BP 132/66 10/26/16 07:00 Pulse Ox 91 L 10/26/16 07:00 Intake & Output 10/25/16 10/26/16 10/26/16 18:59 06:59 18:59 Intake Total 840 Balance 840 Weight 92.986 kg Intake: Oral 840 Other: Voiding Method Toilet Toilet Urinal # Voids 1 2 - Constitutional General appearance: Present: average body habitus, cooperative, no acute distress - EENT Eyes: Present: normal appearance ENT: Present: normal oropharynx - Respiratory Respiratory: right: rhonchi (scattered), left: diminished - Cardiovascular Heart sounds: normal: S1, S2 - Peripheral edema leg Peripheral Edema: bilateral: Trace - Gastrointestinal General gastrointestinal: Present: normal bowel sounds, soft - Neurologic Neurologic: Present: CNII-XII intact - Musculoskeletal Musculoskeletal: Present: strength equal bilaterally - Psychiatric Psychiatric: Present: A&O x's 3, appropriate affect, intact judgment & insight - Labs CBC & Chem 7: 10/26/16 07:14 10/26/16 07:14 Labs: Abnormal Lab Results - Last 24 Hours (Table) 10/25/16 10/25/16 10/26/16 Range/Units 17:04 20:20 07:14 Glucose 112 H (74-99) mg/dL POC Glucose (mg/dL) 116 H 151 H (75-99) mg/dL AST 269 H (17-59) U/L ALT 258 H (21-72) U/L Alkaline Phosphatase 402 H (38-126) U/L Total Protein 5.7 L (6.3-8.2) g/dL Albumin 2.8 L (3.5-5.0) g/dL 10/26/16 Range/Units 11:38 Glucose (74-99) mg/dL POC Glucose (mg/dL) 127 H (75-99) mg/dL AST (17-59) U/L ALT (21-72) U/L Alkaline Phosphatase (38-126) U/L Total Protein (6.3-8.2) g/dL Albumin (3.5-5.0) g/dL Assessment and Plan (1) Small cell lung cancer Narrative/Plan: Patient vocalized frustration with still being admitted to the hospital. It is explained to patient that concerns were for his respiratory status. Patient states he has oxygen as well as nebulizer treatments at home. He feels that he will thrive better at home. Patient confirms that there are 4 sons as well as two guests visiting that can assist him and his . He states 5 steps to get into his mobile home, otherwise there are no other steps. He confirms he has the ability to get back and forth to his radiation appointments. and visiting friends confirm the same information. Case was discussed with internal medicine. He will have his radiation treatment today and then be discharged to home. Patient did agree to visiting nurse. Patient will be following up with Dr. Dia tomorrow in the office at 3:45, he has a radiation treatment scheduled afterwards. All medical concerns were voiced to the patient he verbalized understanding. Status: Acute
[2016-10-26 15:45] VITALS: BP 128/73; PULSE 95; TEMP 98.8
--- NOTE | 2016-10-26 16:26 | P.DS ---
Providers Date of admission: 10/20/16 22:38 Expected date of discharge: 10/26/16 Attending physician: Elizabeth Qiu Consults: 10/21/16 10:07 Consult Physician Routine Consulting Provider: Yehuda Whitehead Consult Reason/Comments: Pneumonia, lung cancer Do you want consulting provider notified?: Yes 10/21/16 10:25 Consult Physician Routine Consulting Provider: Vikram Dodge Consult Reason/Comments: lung ca Do you want consulting provider notified?: Yes 10/21/16 10:28 Consult Physician Routine Consulting Provider: Jason Chase Consult Reason/Comments: pleur-x catheter Do you want consulting provider notified?: Yes [facility] care [facility] Hospital Course: Final Diagnoses: 1. [Acute hypoxic respiratory failure secondary to collapsed lung and large left pleural effusion 4.4 cm, nearly complete account of left lung, low suspicion for pneumonia]. 2. [Elevated liver enzymes secondary to liver metastasis, pancreatic mass versus adenopathy, cholelithiasis per ultrasound.. 3. [Recently diagnosed small cell lung CA], awaiting initiation of chemotherapy. 4. [Hypertension]. 5. [Hyperlipidemia]. 6. [CAD]. 7. [Diabetes mellitus]. 8. History of nicotine Dependence Hospital course: This is an 81-year-old gentleman admitted with acute hypoxic respiratory failure, pleural effusion low suspicion for pneumonia, elevated liver enzymes in a patient with recently diagnosed small cell lung CA. Evaluated by cardiothoracic surgery, decided against Pleurx catheter placement. Evaluated by pulmonary. Evaluated by oncology and radiation oncology. Receiving radiation treatments for the mass which is collapsing almost entire left lung with a bit of pleural effusion. Previously thoracentesis planned by interventional radiology, but the patient was on Plavix and aspirin;procedure canceled. Patient has history of cardiac stents in 2010, denies history of PE, DVT, on both Plavix and aspirin. Plavix discontinued with further recommendations pending per Oncology. Patient doing better, requesting to go home. Ambulating in hallway, maintaining O2 sats of 92% on 2 L nasal cannula. Patient states that he has both O2 and nebulizer treatments at home. Patient has been cleared by all consults. Patient is being discharged home in a stable condition with guarded prognosis. Patient is scheduled to see Dr. Dia tomorrow. Patient Condition at Discharge: Stable Plan - Discharge Summary New Discharge Prescriptions: Dronabinol [Marinol] 2.5 mg PO AC-BID #30 cap HYDROcodone/APAP 7.5-325MG [[place] 7.5-325] 1 each PO Q6H PRN #20 tab PRN Reason: Pain traMADol HCl [Ultram] 50 mg PO QID PRN #20 tab PRN Reason: Pain/Discomfort Discharge Medication List Atorvastatin [Lipitor] 40 mg PO HS 02/20/15 [History] Lisinopril [Zestril] 10 mg PO BID 02/20/15 [History] Metoprolol Tartrate 25 mg PO BID 02/20/15 [History] Nitroglycerin Sl Tabs [Nitrostat] 0.4 mg SUBLINGUAL Q5M PRN 02/20/15 [History] metFORMIN HCL [Glucophage] 500 mg PO DAILY 02/20/15 [History] Omeprazole [PriLOSEC] 20 mg PO DAILY 10/20/16 [History] Aspirin 81 mg PO DAILY chew 10/26/16 [Rx] Dronabinol [Marinol] 2.5 mg PO AC-BID #30 cap 10/26/16 [Rx] HYDROcodone/APAP 7.5-325MG [[place] 7.5-325] 1 each PO Q6H PRN #20 tab 10/26/16 [ Rx] Ipratropium-Albuterol Nebulize [Duoneb 0.5 mg-3 mg/3 ml Soln] 3 ml INHALATION RT -Q4H PRN #0 ampul.neb 10/26/16 [Rx] traMADol HCl [Ultram] 50 mg PO QID PRN #20 tab 10/26/16 [Rx] Follow up Appointment(s)/Referral(s): Jose Alberto Zamora MD [Primary Care Provider] - 3 Days Yehuda Whitehead MD [STAFF PHYSICIAN] - 2 Weeks Festus Dia MD [STAFF PHYSICIAN] - 10/27/16 3:45 pm Activity/Diet/Wound Care/Special Instructions: [facility]: #[phone] Continue radiation txs outpatient as ordered. Diet consistent carb Activity: Limited until follow up 2L [place] O2 Discharge Disposition: HOME WITH HOME HEALTH SERVICES
--- NOTE | 2016-10-26 19:33 | P.PN ---
Subjective 82-year-old male patient was recently diagnosed having advanced stage small cell lung cancer. The patient was started on radiation therapy and he has already completed 3 sessions of radiation. He is also under the care of medical oncology. The patient came into the hospital and he was found to have collapse of the left lung with complete occlusion of the distal left mainstem bronchus. This is expected knowing that he had significant amount of malignancy with extensive endobronchial involvement with small cell lung cancer. He also has significant mediastinal lymphadenopathy and subcarinal lymphadenopathy. There is evidence of pleural effusion within the left lung which could be either reactive or malignant. Nevertheless, the patient is not a candidate for any thoracentesisa candidate for Pleurx catheter insertion knowing that the left main stem bronchus is quite obstructed an occluded and the patient will not achieve any expansion of the left lung with the stepup procedures. He is comfortable at this point. He is on oxygen. He has no significant shortness of breath at rest. No hemoptysis. No other complaints. No mental status change. Objective - Vital Signs Vital signs: Vital Signs Temp 98.8 F 10/26/16 15:00 Pulse 95 10/26/16 15:00 Resp 17 10/26/16 15:00 BP 128/73 10/26/16 15:00 Pulse Ox 92 L 10/26/16 15:00 Intake & Output 10/26/16 10/26/16 10/27/16 06:59 18:59 06:59 Intake Total 840 Balance 840 Weight 92.986 kg Intake: Oral 840 Other: Voiding Method Toilet # Voids 2 - Exam Head exam was generally normal. There was no scleral icterus or corneal arcus. Mucous membranes were moist.Neck was supple and without jugular venous distension, thyromegaly, or carotid bruits. Carotids were easily palpable bilaterally. There was no adenopathy. Lung sounds are diminished in the left compared to the right.Cardiac exam revealed the PMI to be normally situated and sized. The rhythm was regular and no extrasystoles were noted during several minutes of auscultation. The first and second heart sounds were normal and physiologic splitting of the second heart sound was noted. There were no murmurs , rubs, clicks, or gallops.Abdominal exam revealed normal bowel sounds. The abdomen was soft, non-tender, and without masses, organomegaly, or appreciable enlargement of the abdominal aorta.Examination of the extremities revealed easily palpable radial, femoral and pedal pulses. There was no cyanosis, clubbing or edema. - Labs CBC & Chem 7: 10/26/16 07:14 10/26/16 07:14 Labs: Abnormal Lab Results - Last 24 Hours (Table) 10/25/16 10/26/16 10/26/16 Range/Units 20:20 07:14 11:38 Glucose 112 H (74-99) mg/dL POC Glucose (mg/dL) 151 H 127 H (75-99) mg/dL AST 269 H (17-59) U/L ALT 258 H (21-72) U/L Alkaline Phosphatase 402 H (38-126) U/L Total Protein 5.7 L (6.3-8.2) g/dL Albumin 2.8 L (3.5-5.0) g/dL Assessment and Plan Plan: Assessment 1 advanced small cell lung cancer of the lung 2 complete collapse of the left lung with endobronchial tumor obstructing the distal left mainstem bronchus 3 limited left-sided pleural effusion in the setting of left lung collapse 4 left vocal cord paralysis 5 hypoxic respiratory failure 6 abnormal LFTs 7 coronary artery disease with previous coronary stenting 8 hyperlipidemia 9 diabetes mellitus Plan No role for any thoracentesis or Pleurx catheter insertion baseline above- mentioned reasoning. The patient has complete collapse of the left lung with endobronchial tumor and mediastinal lymphadenopathy causing obstruction of the distal left mainstem bronchus. Continue radiation therapy. Systemic chemotherapy by Medical oncology. Oxygen therapy. This was explained at length to the patient and his family and I also shared my opinion with a thoracic surgeon and hospitalist.
--- NOTE | 2016-10-27 09:32 | PN ---
DATE OF SERVICE: 10/25/2016 The patient is an 81-year-old admitted with acute hypoxic respiratory failure secondary to cancerous lesion and cancerous mass, which is a endobronchial tumor with complete collapse of the lung with some pleural effusion. The patient is not a candidate for PleurX catheter placement. The patient may not benefit from pleural ( ). The patient is receiving radiation therapy. Prognosis is extremely poor. REVIEW OF SYSTEMS: CARDIOVASCULAR: No chest pain, no orthopnea, no PND, no palpitations. PULMONARY: Denied any shortness of breath. No cough or hemoptysis. GASTROINTESTINAL: No diarrhea, nausea or vomiting. No abdominal pain. Normoactive bowel sounds. NEUROLOGIC: No headaches, no weakness, no numbness. Medications were reviewed. PHYSICAL EXAMINATION: VITAL SIGNS: Temperature 98.0, pulse of 89, respiratory rate 17, blood pressure is 145/67, saturating at 90% on 2 L of O2 by nasal cannula. GENERAL: The patient is alert and oriented x3, not in any acute distress. Well developed, well nourished. HEENT: Pupils are round and equally reacting to light. EOMI. No scleral icterus. No conjunctival pallor. Normocephalic, atraumatic. No pharyngeal erythema. No thyromegaly. CARDIOVASCULAR: S1 and S2 present. No murmurs, rubs, or gallops. PULMONARY: Left sided posteriorly breath sounds are almost absent, rhonchus breath sounds. ABDOMEN: Soft, nontender, nondistended, normoactive bowel sounds. No palpable organomegaly. MUSCULOSKELETAL: No joint swelling or deformity. EXTREMITIES: No cyanosis, clubbing, or pedal edema. NEUROLOGICAL: Gross neurological examination did not reveal any focal deficits. SKIN: No rashes. Laboratory data was reviewed. ASSESSMENT AND PLAN: 1. Acute hypoxic respiratory failure secondary to collapsed lung and with ( ) pleural effusion. Low suspicion for pneumonia and patient has an endobronchial metastatic small cell carcinoma, which is occluding the left mainstem bronchus relating to complete lung collapse. 2. Elevated liver enzymes. 3. Recently diagnosed small cell lung cancer. 4. Hypertension. 5. Hyperlipidemia. 6. Coronary artery disease. 7. Type 2 diabetes mellitus. Plan is to continue with radiation therapy. Regarding pleural effusion, patient has a little pleural effusion cannot benefit from thoracocentesis. Anyways interventional radiology was consulted for that. Elevated liver enzymes secondary to metastatic disease. Patient's prognosis is extremely poor.
== END 2016-10-26 19:40 | disposition home health service (06) | DRG 180 ==
LOC: EC 20:04 → 5MS5E 22:38 → 5ONC 10-21 17:32
PROVIDERS: ADMIT Internal Medicine; ATTEND Internal Medicine
PROC: DB022ZZ Beam Radiation of Lung using Photons >10 MeV (ICD-10-PCS; principal; 2016-10-21)
PROC: DB022ZZ Beam Radiation of Lung using Photons >10 MeV (ICD-10-PCS; 2016-10-21)
PROC: DB022ZZ Beam Radiation of Lung using Photons >10 MeV (ICD-10-PCS; 2016-10-26)
DX: C34.12 Malignant neoplasm of upper lobe, left bronchus or lung (principal); J96.01 Acute respiratory failure with hypoxia; J91.0 Malignant pleural effusion; C78.7 Secondary malignant neoplasm of liver and intrahepatic bile duct; J98.11 Atelectasis; E11.9 Type 2 diabetes mellitus without complications; J38.01 Paralysis of vocal cords and larynx, unilateral; E78.5 Hyperlipidemia, unspecified; I10 Essential (primary) hypertension; I25.10 Atherosclerotic heart disease of native coronary artery without angina pectoris; I25.2 Old myocardial infarction; K80.20 Calculus of gallbladder without cholecystitis without obstruction; M54.5 Low back pain; K86.9 Disease of pancreas, unspecified; R59.0 Localized enlarged lymph nodes; Z79.02 Long term (current) use of antithrombotics/antiplatelets; Z79.82 Long term (current) use of aspirin; Z79.899 Other long term (current) drug therapy; Z79.84 Long term (current) use of oral hypoglycemic drugs; Z85.828 Personal history of other malignant neoplasm of skin; Z87.891 Personal history of nicotine dependence; Z95.5 Presence of coronary angioplasty implant and graft; Z82.49 Family history of ischemic heart disease and other diseases of the circulatory system
CPT/HCPCS: 36415; 70460; 71020; 71250; 74020; 76604; 76705; 77295; 77300; 77332; 77334; 77387; 77412; 80053; 80074; 81003; 82550; 82553; 83880; 84484; 85025; 85027; 85610; 85730; 87324; 93005; 94640; 94760; 99285

== ENCOUNTER 2016-11-05 08:57 | Day surgery (SDC) | payer MEDICARE ==
[2016-11-05 09:42] LABS: Mean Platelet Volume 7.9
[2016-11-05 09:48] LABS: INR 1.4 (<1.1); Prothrombin Time 13.8 sec (9.0-12.0)
[2016-11-05 09:56] VITALS: TEMP 97.1
--- NOTE | 2016-11-05 10:48 | XR ---
EXAMINATION TYPE: XR chest 1V portable DATE OF EXAM: 11/05/2016 10:44 AM HISTORY: Shortness of breath. COMPARISON: 10/20/2016 TECHNIQUE: Single view of the chest is submitted. FINDINGS: There is complete opacification of the left hemithorax unchanged from prior study. The right lung is hyperinflated and free of infiltrate nodule or mass. No evidence for discernible left-sided pneumotho rax. The heart is stable. Hilar and mediastinal structures are within normal limits. Degenerative changes are seen of the dorsal spine. IMPRESSION: 1. Near complete opacification left hemithorax is unchanged.
[2016-11-05 11:01] LABS: Glucose,Whole Blood 95 mg/dL (75-99)
--- NOTE | 2016-11-05 11:15 | US ---
Ultrasound-guided therapeutic and diagnostic thoracentesis CLINICAL HISTORY: Left pleural effusion The procedure was discussed with the patient. The risks, complications, benefits, and alternatives we re discussed and any questions were answered. Informed consent was obtained. The patient was placed supine on the ultrasound table and prepped and draped in the usual sterile fas hion. All elements of maximal barrier and sterile technique were utilized. Under ultrasound guidance, access into the pleural space was obtained, via the thoracentesis catheter system and direct ultrasound guidance. Ap proximately 1150 liters of serous fluid was removed. Sample sent department of pathology for analysis. The patient was stable throughout the procedure and remained stable upon discharge from Department of Radiology. IMPRESSION: 1. Successful therapeutic and diagnostic thoracentesis under ultrasound guidance.
[2016-11-05 12:23] VITALS: BP 122/74; RESP 18
== END 2016-11-05 11:40 | disposition home or self-care (01) ==
LOC: RADPROMAIN 08:57
PROVIDERS: ATTEND Radiology Radiation Oncology
DX: C34.10 Malignant neoplasm of upper lobe, unspecified bronchus or lung (principal); C78.2 Secondary malignant neoplasm of pleura; J90 Pleural effusion, not elsewhere classified
CPT/HCPCS: 32555; 36415; 71010; 85049; 85610; 88108; 88305; 88341; 88342